=== PATIENT | female | born 1940 | race Caucasian/White ===

== ENCOUNTER 2025-03-29 18:29 | Outpatient (CLI) | payer MEDICARE, SELFPAY | END 2025-03-29 18:30 | disposition home or self-care (01) | LOC: AMB 04-01 11:01 | PROVIDERS: Visit Provider Family Medicine | DX: R41.82 Altered mental status, unspecified (principal); R11.2 Nausea with vomiting, unspecified | CPT/HCPCS: A0425; A0427 ==

== ENCOUNTER 2025-03-29 18:48 | Emergency (ER) | payer MEDICARE, SELFPAY ==
--- OUTSIDE RECORDS SUMMARY | 2017-05-24 19:00 | XMS_ITS | Continuity of Care Document ---
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 Name Role Phone Arron Berrios MD Unavailable Unavailable Medications Medication Instructions Dosage Effective Dates (start - stop) Status Comments gabapentin 300 mg Cap take 2 Capsule (600MG) by ORAL route every day 600 MG - Active lovastatin 20 mg Tab take 1 tablet (20MG ) by oral route every day with the evening meal 20 MG - Active clonazepam 0.5 mg Tab take 0.5 - 1 Tablet (0.25MG) by ORAL route every day 0.25 MG - Active paroxetine 20 mg Tab Take 1 tablet by mo uth daily - Active Procedures Procedure Date Colonoscopy Flex; W/remov Les- 17 Moderate sedation, initial 15 minutes Au Colonoscopy Flex; W/remov Les- 14 Colonoscopy Flex; W/remov Les- 11 Colonoscopy Flex; W/bx 1/mx Level Iv-surg Path Gross/micro 11 Level Iv-surg Path Gross/micro 11 Level Iv-surg Path Gross/micro 11 Level Iv-surg Path Gross/micro 11 Level Iv-surg Path Gross/micro Oct-- 11 0529F Colonoscopy Flex; W/remov Les- 08 Colonoscopy Flex; W/bx /mx Level Iv-surg Path Gross/micro 08 Level Iv-surg Path Gross/micro 08 Advance Directives Directive Yes / No Effective Date File Name No Information Encounters Encounter Description Practice Location Reason(s) For Visit Diagnoses Date Provider Providers Copied on Encounter [facility], [address] [address], [place], [id number], [place] tel:[phone] [facility] No Information 7 Agustina Heller. [address], [id number], [place]. tel:[phone] [facility], [address] [address], [place], [id number], [place] tel:[phone] [facility] No Information 7 Agustina Heller. [address] [place] [address], [id number], [place]. tel:[phone] Referring Provider: Blair Villalobos, [address] [place] [address], [facility]. [phone] [facility], [address] [address], [place], [id number], [place] tel:[phone] [facility] Personal History Colon Polyps 4 Agustina Heller. [address] [place] [address], [id number], [place]. tel:[phone] [facility], [address] [address], [place], [id number], [place] tel:[phone] [facility] No Information 4 Agustina Heller. [address], [id number], [place]. tel:[phone] Referring Provider: Blair Villalobos, [address] [place] [address], [facility]. tel:[phone] [facility], [address] [address], [place], [id number], [place] tel:[phone] [facility] Polyp-intes/r ect/stom-unc BehColon Cancer ScreeningPers onal History Colon PolypsColon Cancer ScreeningBeni gn Neoplasm ColonPersonal History Colon Polyps 9-201 1 No Information Referring Provider: Referral Self, USE FOR SELF REFERRALS. [facility] [address] [address], [place], [id number], [place] tel:[phone] [facility] Polyp-intes/r ect/stom-unc BehBenign Neoplasm Lg BowelFamily Hx GI Tract Cancer 5-200 8 No Information Family History Family Member Type Diagnosis Age At Onset No Information Payers Payer name Insurance type Covered constitution party ID Authoriza tion(s) No Information Social History Type Description Quantity Date Captured Comments Sex Female Smoking Status No Information Chief Complaint And Reason For Visit No Information Reason For Referral Reason For Referral No Information Plan Of Treatment Date Type Action Status Referral Ordered: Colonoscopy Appointment date/timeframe: 05/28/2017 ordered History Of Present Illness Encounter Date Complaint History Of Prese nt Illness No Information Functional Status Date Functional Assessmen t No Information Instructions Date Instruction Additional Infor mation No Information Assessments Type Assessment Date No Information Patient Care Teams Name Effective Dates (start - stop) Status Members No Information
--- OUTSIDE RECORDS SUMMARY | 2025-03-25 13:30 | XMS_ITS | Encounter Summary ---
Author Organization [facility] Address [address] [place] [id number] Care Team Providers Care [facility] Mounter Name Role Phone Idalia Lara PT Unavailable [phone] Taylor Mccoy MD Unavailable Eveline Streeter RN Unavailable [phone] Blair Gutiérrez MD Primary Care Provider Blair Gutiérrez MD Unavailable La Flores MD Unavailable Deepa Dobbins MD Unavailable [phone] No Ref-Primary, Physician Unavailable Reason for Referral * Diagnostic Imaging Mammo (Routine) - Pending Review Specialty Diagnoses / Procedures Referred By Rey t Referred To Contact Radiology. Diagnoses Encounter for screening mammogram for malignant neoplasm of breast Procedures MA Screen Right w/Tito Blair Gutiérrez MD [address] [place] [address] Phone: tel: fax: Referral ID Status Reason Start Date Expiration Date V isits Requested Visits Authorized [id number] Pending Review 03/25/2025 03/25/2026 1 1 * Diagnostic Imaging Dexa (Routine) - Authorized Specialty Diagnoses / Procedures Referred By Conttimothy t Referred To Contact Radiology. Diagnoses Vitamin D deficiency Screening for osteoporosis Asymptomatic menopausal state Procedures DEXA HIP/PELVIS/SPINE - Future Blair Gutiérrez MD [address] [place] [id number] Phone: tel: fax: Referral ID Status Reason Start Date Expiration Date V isits Requested Visits Authorized [id number] Authorized 03/25/2025 03/25/2026 1 1 Reason for Visit * Reason Comments Medicare Visit Encounter Details Date Type Department Care Team (Late st Contact Info) Description 03/25/2025 1:30 PM CDT Office Visit [address] [phone] Blair Gutiérrez MD [address] [place] [phone] Routine general medical examination at a health care facility (Primary Dx); Medicare annual wellness visit, subsequent; Tremor; Malignant neoplasm of left female breast, unspecified estrogen receptor status, unspecified site of breast (H); Ascending aorta dilatation; Atherosclerosis of abdominal aorta; Abdominal aortic aneurysm (AAA) without rupture, unspecified part; Hyperlipidemia LDL goal <70; Major depressive disorder, single episode, mild; Generalized muscle weakness; Other cirrhosis of liver (H); Renal cyst; Splenic lesion; Iron deficiency anemia, unspecified iron deficiency anemia type; Vitamin D deficiency; Encounter for screening mammogram for malignant neoplasm of breast; Screening for osteoporosis; Medication monitoring encounter; Asymptomatic menopausal state Social History Tobacco Use Types Packs/Day Years Used Date Smoking Tobacco: Former Smokeless Tobacco: Never Comments:rare at 18 Alcohol Use Standard Drinks/Week Comments Not Currently 0 (1 standard drink = 0.6 oz pur e alcohol) none Social Connection and Isolation Panel [NHANES] A nswer Date Recorded Frequency of Communication with Friends and Fami ly Not on file 03/25/2025 How often do you get together with friends or re latives? Once a week 03/25/2025 Attends Jainism Services Not on file 03/25 Active Member of Clubs or Organizations Not on f ile 03/25/2025 Attends Club or Organization Meetings Not on tim e 03/25/2025 Marital Status Not on file 03/25/2025 PHQ-2 Answer Date Recorded PHQ-2 Score 0 03/25/2025 [employer] - Occupational Stress Questionnaire Answer Date Recorded Do you feel stress - tense, restless, nervous, or anxious, or unable to sleep at night because your mind is troubled all the time - these days? Not at all 03/25/2025 Exercise Vital Sign Answer Date Recorde d On average, how many days pe r week do you engage in moderate to strenuous exercise (like a brisk walk)? 0 days 03/25/2025 On average, how many minutes do you engage in exercise at this level? 0 min 03/25/2025 Adolescent Education Answer Date Record ed Getting School Help Needed Not on file 07/26 Food Insecurity Answer Date Recorded Within the past 12 months, d id you worry that your food would run out before you got money to buy more? No 03/25/2025 Within the past 12 months, d id the food you bought just not last and you didn t have money to get more? No 03/25/2025 Housing Stability Answer Date Recorded Do you have housing? (Ree g is defined as stable permanent housing and does not include staying outside in a car, in a tent, in an abandoned building, in an overnight mcc, or couch-surfing.) Yes 03/25/2025 Are you worried about losing your housing? No 03/25/2025 Financial Resource Strain Answer Date R ecorded Within the past 12 months, h ave you or your family members you live with been unable to get utilities (heat, electricity) when it was really needed? No 03/25/2025 Transportation Needs Answer Date Record ed Within the past 12 months, h as lack of transportation kept you from medical appointments, getting your medicines, non-medical meetings or appointments, work, or from getting things that you need? No 03/25/2025 Interpersonal Safety Answer Date Record ed Do you feel physically and e motionally safe where you currently live? Yes 03/25/2025 Within the past 12 months, h ave you been hit, slapped, kicked or otherwise physically hurt by someone? No 03/25/2025 Within the past 12 months, h ave you been humiliated or emotionally abused in other ways by your partner or ex-partner? 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 Preventive Care Visit [facility] Blair Gutiérrez MD, Family Medicine Mar 25, 2025 Assessment & Plan Routine general medical examination at a health care facility - Comprehensive metabolic panel - Lipid panel reflex to direct LDL Fasting - CBC with platelets - CK total - UA Macroscopic with reflex to Microscopic and Culture - Albumin Random Urine Quantitative with Creat Ratio - TSH with free T4 reflex - Iron and iron binding capacity - Ferritin - Vitamin D Deficiency - Magnesium - REVIEW OF HEALTH MAINTENANCE PROTOCOL ORDERS - PRIMARY CARE FOLLOW-UP SCHEDULING Medicare annual wellness visit, subsequent - Comprehensive metabolic panel - Lipid panel reflex to direct LDL Fasting - CBC with platelets - CK total - UA Macroscopic with reflex to Microscopic and Culture - Albumin Random Urine Quantitative with Creat Ratio - TSH with free T4 reflex - Iron and iron binding capacity - Ferritin - Vitamin D Deficiency - Magnesium - REVIEW OF HEALTH MAINTENANCE PROTOCOL ORDERS - PRIMARY CARE FOLLOW-UP SCHEDULING Tremor - Comprehensive metabolic panel - Magnesium - REVIEW OF HEALTH MAINTENANCE PROTOCOL ORDERS - PRIMARY CARE FOLLOW-UP SCHEDULING - topiramate (TOPAMAX) 100 MG tablet Dispense: 180 tablet; Refill: 3 - Topiramate Level Malignant neoplasm of left female breast, unspecified estrogen receptor status, unspecified site ofbreast (H) - Comprehensive metabolic panel - CBC with platelets - REVIEW OF HEALTH MAINTENANCE PROTOCOL ORDERS - Miscellaneous DME Supply Order (Use only if a more specific DME order does not already exist) - PRIMARY CARE FOLLOW-UP SCHEDULING Ascending aorta dilatation - Lipid panel reflex to direct LDL Fasting - REVIEW OF HEALTH MAINTENANCE PROTOCOL ORDERS - PRIMARY CARE FOLLOW-UP SCHEDULING - rosuvastatin (CRESTOR) 10 MG tablet Dispense: 90 tablet; Refill: 3 Atherosclerosis of abdominal aorta - Lipid panel reflex to direct LDL Fasting - REVIEW OF HEALTH MAINTENANCE PROTOCOL ORDERS - PRIMARY CARE FOLLOW-UP SCHEDULING - rosuvastatin (CRESTOR) 10 MG tablet Dispense: 90 tablet; Refill: 3 Abdominal aortic aneurysm (AAA) without rupture, unspecified part - Lipid panel reflex to direct LDL Fasting - REVIEW OF HEALTH MAINTENANCE PROTOCOL ORDERS - PRIMARY CARE FOLLOW-UP SCHEDULING - rosuvastatin (CRESTOR) 10 MG tablet Dispense: 90 tablet; Refill: 3 Hyperlipidemia LDL goal <70 - Comprehensive metabolic panel - Lipid panel reflex to direct LDL Fasting - CK total - REVIEW OF HEALTH MAINTENANCE PROTOCOL ORDERS - PRIMARY CARE FOLLOW-UP SCHEDULING - rosuvastatin (CRESTOR) 10 MG tablet Dispense: 90 tablet; Refill: 3 Major depressive disorder, single episode, mild - TSH with free T4 reflex - REVIEW OF HEALTH MAINTENANCE PROTOCOL ORDERS - PRIMARY CARE FOLLOW-UP SCHEDULING - citalopram (CELEXA) 20 MG tablet Dispense: 90 tablet; Refill: 3 Generalized muscle weakness - TSH with free T4 reflex - REVIEW OF HEALTH MAINTENANCE PROTOCOL ORDERS - PRIMARY CARE FOLLOW-UP SCHEDULING Other cirrhosis of liver (H) - Comprehensive metabolic panel - CBC with platelets - REVIEW OF HEALTH MAINTENANCE PROTOCOL ORDERS - PRIMARY CARE FOLLOW-UP SCHEDULING Renal cyst - Comprehensive metabolic panel - UA Macroscopic with reflex to Microscopic and Culture - Albumin Random Urine Quantitative with Creat Ratio - REVIEW OF HEALTH MAINTENANCE PROTOCOL ORDERS - PRIMARY CARE FOLLOW-UP SCHEDULING Splenic lesion - Lipid panel reflex to direct LDL Fasting - REVIEW OF HEALTH MAINTENANCE PROTOCOL ORDERS - PRIMARY CARE FOLLOW-UP SCHEDULING Iron deficiency anemia, unspecified iron deficiency anemia type - CBC with platelets - Iron and iron binding capacity - Ferritin - REVIEW OF HEALTH MAINTENANCE PROTOCOL ORDERS - PRIMARY CARE FOLLOW-UP SCHEDULING Vitamin D deficiency - Comprehensive metabolic panel - Vitamin D Deficiency - REVIEW OF HEALTH MAINTENANCE PROTOCOL ORDERS - DEXA HIP/PELVIS/SPINE - Future - PRIMARY CARE FOLLOW-UP SCHEDULING Encounter for screening mammogram for malignant neoplasm of breast - REVIEW OF HEALTH MAINTENANCE PROTOCOL ORDERS - MA Screen Right w/Tito - PRIMARY CARE FOLLOW-UP SCHEDULING Screening for osteoporosis - REVIEW OF HEALTH MAINTENANCE PROTOCOL ORDERS - DEXA HIP/PELVIS/SPINE - Future - PRIMARY CARE FOLLOW-UP SCHEDULING Medication monitoring encounter - Comprehensive metabolic panel - Lipid panel reflex to direct LDL Fasting - CBC with platelets - CK total - UA Macroscopic with reflex to Microscopic and Culture - Albumin Random Urine Quantitative with Creat Ratio - TSH with free T4 reflex - Iron and iron binding capacity - Ferritin - Vitamin D Deficiency - Magnesium - REVIEW OF HEALTH MAINTENANCE PROTOCOL ORDERS - PRIMARY CARE FOLLOW-UP SCHEDULING Asymptomatic menopausal state - REVIEW OF HEALTH MAINTENANCE PROTOCOL ORDERS - DEXA HIP/PELVIS/SPINE - Future - PRIMARY CARE FOLLOW-UP SCHEDULING Patient has been advised of split billing requirements and indicates understanding: Yes Counseling Appropriate preventive services were addressed with this patient via screening, questionnaire, or discussion as appropriate for fall prevention, nutrition, physical activity, Tobacco-use cessation, social engagement, weight loss and cognition. Checklist reviewing preventive services available has been given to the patient. Reviewed patient's diet, addressing concerns and/or questions. The patient was instructed to see the dentist every 6 months. The patient was provided with written information regarding signs of hearing loss. Information on urinary incontinence and treatment options given to patient. Plan: 1) Medications: reviewed, refilled 2) Labs: pending 3) Immunizations: declines all 4) Imaging/Diagnostics: mammogram, DEXA 5) Consults: NA Return in about 1 year (around 03/25/2026) for Complete Physical, Medication Recheck Visit, Follow [facility]. 44 minutes spent by myself on the date of the encounter doing chart review, history and exam, documentation and further activities per the note. The longitudinal plan of care for the diagnosis(es)/condition(s) as documented were addressed during this visit. Due to the added complexity in care, I will continue to support Pat in the subsequent management and with ongoing continuity of care. Shared Decision making completed. Quoc Frankel is a 84 year old, presenting for the following: Medicare Visit 03/25/2025 1:38 PM Additional Questions Roomed by Noemy Everett CMA HPI Patient is fasting. Left breast cancer, S/P Mastectomy - 1986 Tremor - chronic - stable - started at age 65 Ascending aorta dilatation / AAA - imaging in 11/2023 and 12/2023 - stable - Dr Flores Cirrhosis / Renal cyst / Splenic lesion KAYLIE Hemoglobin Date Value Ref Range Status 12/16/2023 12.0 11.7 - 15.7 g/dL Final 10/25/2023 9.4 (L) 11.7 - 15.7 g/dL Final 11/09/2019 13.1 11.7 - 15.7 g/dL Final 07/31/2018 13.0 11.7 - 15.7 g/dL Final Vitamin D deficiency Lipids Recent Labs Lab Test 12/16/23 0830 11/10/21 1049 CHOL 180 190 HDL 76 61 LDL 83 96 TRIG 104 165* Depression / Anxiety - PHQ = 0, PIYUSH = 0 How are you doing with your anxiety since your last visit? No change Are you having other symptoms that might be associated with anxiety? No Have you had a significant life event? OTHER: daughter trenton cowan, in hospital, kids are in hospital Are you feeling depressed? No Do you have any concerns with your use of alcohol or other drugs? No 08/25/2023 3:06 PM 11/18/2023 9:33 AM 03/25/2025 1:17 PM PIYUSH-7 SCORE Total Score 0 (minimal anxiety) Incomplete Total Score 0 0 08/25/2023 3:06 PM 11/18/2023 9:32 AM 03/25/2025 1:17 PM PHQ PHQ-9 Total Score 0 0 0 Q9: Thoughts of better off /self-harm past 2 weeks Not at all Not at all Not at all Patient-reported 03/25/2025 1:17 PM Last PHQ-9 1. Little interest or pleasure in doing things 0 2. Feeling down, depressed, or hopeless 0 3. Trouble falling or staying asleep, or sleeping too much 0 4. Feeling tired or having little energy 0 5. Poor appetite or overeating 0 6. Feeling bad about yourself 0 7. Trouble concentrating 0 8. Moving slowly or restless 0 Q9: Thoughts of better off /self-harm past 2 weeks 0 PHQ-9 Total Score 0 Patient-reported 11/18/2023 9:33 AM PIYUSH-7 1. Feeling nervous, anxious, or on edge 0 2. Not being able to stop or control worrying 0 3. Worrying too much about different things 0 4. Trouble relaxing 0 5. Being so restless that it is hard to sit still 0 6. Becoming easily annoyed or irritable 0 7. Feeling afraid, as if something awful might happen 0 PIYUSH-7 Total Score 0 If you checked any problems, how difficult have they made it for you to do your work, take care of things at home, or get along with other people? Not difficult at all How are you doing with your depression since your last visit? No change Are you having other symptoms that might be associated with depression? No Have you had a significant life event? OTHER: children is hospital Are you feeling anxious or having panic attacks? No Do you have any concerns with your use of alcohol or other drugs? No Suicide Assessment Five-step Evaluation and Treatment (SAFE-T) Advance Care Planning Discussed advance care planning with patient; informed AVS has link to [facility]. 03/25/2025 General Health How would you rate your overall physical health? Excellent Feel stress (tense, anxious, or unable to sleep) Not at all 03/25/2025 Nutrition Diet: Regular (no restrictions) 03/25/2025 Exercise Days per week of moderate/strenous exercise 0 days Average minutes spent exercising at this level 0 min (!) EXERCISE CONCERN 03/25/2025 Social Factors Frequency of gathering with friends or relatives Once a week Worry food won't last until get money to buy more No Food not last or not have enough money for food? No Do you have housing? (Housing is defined as stable permanent housing and does not include staying outside in a car, in a tent, in an abandoned building, in an overnight mcc, or couch-surfing.) Yes Are you worried about losing your housing? No Lack of transportation? No Unable to get utilities (heat,electricity)? No 03/25/2025 Fall Risk Fallen 2 or more times in the past year? No Trouble with walking or balance? No 03/25/2025 Activities of Daily Living- Home Safety Needs help with the following daily activites None of the above Safety concerns in the home None of the above 03/25/2025 Dental Dentist two times every year? (!) NO 03/25/2025 Hearing Screening Hearing concerns? (!) I FEEL THAT PEOPLE ARE MUMBLING OR NOT SPEAKING CLEARLY. 03/25/2025 Driving Risk Screening Patient/family members have concerns about driving No 03/25/2025 General Alertness/Fatigue Screening Have you been more tired than usual lately? No 03/25/2025 Urinary Incontinence Screening Bothered by leaking urine in past 6 months Yes Today's PHQ-9 Score: 03/25/2025 1:17 PM PHQ-9 SCORE PHQ-9 Total Score MyChart 0 PHQ-9 Total Score 0 Patient-reported 03/25/2025 Substance Use Alcohol more than 3/day or more than 7/wk No Do you have a current opioid prescription? No How severe/bad is pain from 1 to 10? 0/10 (No Pain) Do you use any other substances recreationally? No Social History Tobacco Use Smoking status: Former Smokeless tobacco: Never Tobacco comments: rare at 18 Vaping Use Vaping status: Never Used Substance Use Topics Alcohol use: Not Currently Comment: none Drug use: No Annual mammogram Fracture Risk Assessment Tool Link to Frax Calculator Use the information below to complete the Frax calculator : 1940 Sex: female Weight (kg): Patient weight not available. Height (cm): 0 cm Previous Fragility Fracture: Yes History of parent with fractured hip: No Current Smoking: No Patient has been on glucocorticoids for more than 3 months (5mg/day or more): No Rheumatoid Arthritis on Problem List: No Secondary Osteoporosis on Problem List: No Consumes 3 or more units of alcohol per day: No Femoral Neck BMD (g/cm2) Reviewed and updated as needed this visit by Provider Current providers sharing in care for this patient include: Patient Care Team: Blair Gutiérrez MD as PCP - General (Family Medicine) Idalia Lara PT as Specialty Partition Assembler (Physical Medicine and Rehabilitation) Taylor Mccoy MD as MD (Physical Medicine and Rehabilitation) Eveline Streeter, KRIS as Specialty Partition Assembler (Physical Medicine and Rehabilitation) Blair Gutiérrez MD as Assigned PCP La Flores MD as Assigned Heart and Vascular Provider Deepa Dobbins MD as MD (Cardiovascular Disease) No Ref-Primary, Physician The following health maintenance items are reviewed in Epic and correct as of today: Health Maintenance Topic Date Due DEXA Never done HEPATITIS A VACCINE (1 of 2 - Risk 2-dose series) Never done ZOSTER VACCINE (1 of 2) Never done HEPATITIS B VACCINE (1 of 3 - Risk 3-dose series) Never done DTAP/TDAP/TD VACCINE (1 - Tdap) 04/14/2007 PNEUMOCOCCAL VACCINE 50+ YEARS (2 of 2 - PCV) 04/13/2008 RSV VACCINE (1 - 1-dose 75+ series) Never done MAMMO SCREENING 11/21/2020 COVID-19 VACCINE ( - 2023- season) Never done LIPID 12/16/2024 INFLUENZA VACCINE (Season Ended) 2025 PHQ-9 09/24/2025 MEDICARE ANNUAL WELLNESS VISIT 03/25/2026 ANNUAL REVIEW OF HM ORDERS 03/25/2026 FALL RISK ASSESSMENT 03/25/2026 ADVANCE CARE PLANNING 03/25/2030 DEPRESSION ACTION PLAN Completed HPV VACCINE Aged Out MENINGITIS VACCINE Aged Out COLORECTAL CANCER SCREENING Discontinued Patient Active Problem List Diagnosis Tremor Hyperlipidemia LDL goal <70 Major depressive disorder, single episode, mild Breast cancer (H) Colon polyps Vitamin D deficiency Ureteral stone Pericardial cyst Renal cyst Generalized muscle weakness Splenic lesion Urinary tract infection with hematuria, site unspecified COVID-19 Ascending aorta dilatation Cirrhosis of liver (H) Left wrist pain Closed left hip fracture (H) Fall at home, initial encounter Past Medical History: Diagnosis Date Ascending aorta dilatation 3.9 x 4.1cm - Dr Flores Breast cancer (H) 1986 Left Cirrhosis of liver (H) see CT - nodularity Colon polyps 05/06, 06/09 tubular adenomas x 3 (2013), x 3 (2016) Hyperlipidemia LDL goal <70 Infection due to 2018 novel coronavirus 07/2023 [facility] hospitalization Major depressive disorder, single episode, mild 2006 Nephrolithiasis 12/2022 Dr Dubon Renal disease left renal cyst Tremor 2003 dr paige - essential Vitamin D deficiency Past Surgical History: Procedure Laterality Date ARTHROPLASTY HIP ANTERIOR Left 09/27/2023 Procedure: ARTHROPLASTY, HIP, TOTAL, LEFT; Surgeon: Ronni Villegas MD; Location: OR CLOSED REDUCTION WRIST Left 09/27/2023 Procedure: CLOSED REDUCTION AND CASTING, LEFT WRIST; Surgeon: Ronni Villegas MD; Location: OR COLONOSCOPY 05/06/2008 Dr. Agustina SCHMITT - tubular adenomas x 3 (2013), 3 (2016) - due 3 yrs CYSTOSCOPY, RETROGRADES, INSERT STENT URETER(S), COMBINED Left 01/05/2023 Procedure: 1. Cystourethroscopy with left retrograde pyelography 2. Placement of left ureteral stent. 3. Intraoperative interpretation of fluoroscopic imaging.; Surgeon: Pawel Dubon MD; Location: [facility] OR HYSTERECTOMY VAGINAL 1978 ovaries in LASER HOLMIUM LITHOTRIPSY URETER(S), INSERT STENT, COMBINED Left 01/27/2023 Procedure: 1. Cystourethroscopy 2. Left ureteroscopy 3. Left retrograde pyelogram with interpretation of intraoperative fluoroscopic imaging 4. Thulium fiber laser lithotripsy with basket stone extraction 5. Left ureteral stent exchange; Surgeon: Pawel Dubon MD; Location: [facility] OR SURGICAL HISTORY OF - Left 1986 left radical mastectomy on left SURGICAL HISTORY OF - Bilateral 1946 tonsillectomy and adenoidectomy Current Outpatient Medications Medication Sig Dispense Refill citalopram (CELEXA) 20 MG tablet Take 1 tablet (20 mg) by mouth daily. 90 tablet 3 rosuvastatin (CRESTOR) 10 MG tablet Take 1 tablet (10 mg) by mouth daily. 90 tablet 3 topiramate (TOPAMAX) 100 MG tablet Take 1 tablet (100 mg) by mouth 2 times daily. 180 tablet 3 No Known Allergies Family History Problem Relation Age of Onset Heart Failure Mother Colon Cancer Mother age 85 Coronary Artery Disease Father age 83 Diabetes Sister Kidney failure Sister Colon Cancer Sister mets to liver Diabetes Sister Colon Cancer Brother 42 Diabetes Brother Cancer Brother multiple - at age 68 Colon Cancer Brother Other - See Comments Daughter Long Covid with clots Diabetes Son Coronary Artery Disease Son 54 s/p stent placement in Oct 2021, needs further stents soon Other - See Comments Son CAH Parkinsonism Maternal Uncle Colon Cancer Other neice at age 44 Social History Socioeconomic History Marital status: Spouse name: Vladimir Number of children: 3 Years of education: 14 Highest education level: None Occupational History Employer: NONE Tobacco Use Smoking status: Former Smokeless tobacco: Never Tobacco comments: rare at 18 Vaping Use Vaping status: Never Used Substance and Sexual Activity Alcohol use: Not Currently Comment: none Drug use: No Sexual activity: Never Other Topics Concern Parent/sibling w/ CABG, MO or angioplasty before 65F 55M? No Caffeine Concern Yes Comment: 3-4 decaf daily - no pop Exercise Yes Comment: 2-3 times per week Seat Belt Yes Social Drivers of Health Financial Resource Strain: Low Risk (03/25/2025) Financial Resource Strain Within the past 12 months, have you or your family members you live with been unable to get utilities (heat, electricity) when it was really needed?: No Food Insecurity: Low Risk (03/25/2025) Food Insecurity Within the past 12 months, did you worry that your food would run out before you got money to buy more?: No Within the past 12 months, did the food you bought just not last and you didn???t have money to getmore?: No Transportation Needs: Low Risk (03/25/2025) Transportation Needs Within the past 12 months, has lack of transportation kept you from medical appointments, getting your medicines, non-medical meetings or appointments, work, or from getting things that you need?: No Physical Activity: Inactive (03/25/2025) Exercise Vital Sign Days of Exercise per Week: 0 days Minutes of Exercise per Session: 0 min Stress: No Stress Concern Present (03/25/2025) [employer] - Occupational Stress Questionnaire Feeling of Stress : Not at all Social Connections: Unknown (03/25/2025) Social Connection and Isolation Panel [NHANES] Frequency of Social Gatherings with Friends and Family: Once a week Interpersonal Safety: Low Risk (03/25/2025) Interpersonal Safety Do you feel physically and emotionally safe where you currently live?: Yes Within the past 12 months, have you been hit, slapped, kicked or otherwise physically hurt by someone?: No Within the past 12 months, have you been humiliated or emotionally abused in other ways by your partner or ex-partner?: No Housing Stability: Low Risk (03/25/2025) Housing Stability Do you have housing? : Yes Are you worried about losing your housing?: No Colonoscopy: NA FIT / Cologuard: NA Pap: NA Mammogram: ordered DEXA: ordered Review of Systems CONSTITUTIONAL: NEGATIVE for fever, chills, change in weight INTEGUMENTARY/SKIN: NEGATIVE for worrisome rashes, moles or lesions EYES: NEGATIVE for vision changes or irritation ENT/MOUTH: NEGATIVE for ear, mouth and throat problems RESP: NEGATIVE for significant cough or SOB BREAST: NEGATIVE for masses, tenderness or discharge CV: NEGATIVE for chest pain, palpitations or peripheral edema GI: NEGATIVE for nausea, abdominal pain, heartburn, or change in bowel habits : NEGATIVE for frequency, dysuria, or hematuria MUSCULOSKELETAL: NEGATIVE for significant arthralgias or myalgia NEURO: NEGATIVE for weakness, dizziness or paresthesias ENDOCRINE: NEGATIVE for temperature intolerance, skin/hair changes HEME: NEGATIVE for bleeding problems PSYCHIATRIC: NEGATIVE for changes in mood or affect Objective Exam There were no vitals taken for this visit. Estimated body mass index is 26.52 kg/m?? as calculated from the following: Height as of 11/03/23: 1.575 m (5' 2). Weight as of 11/18/23: 65.8 kg (145 lb). Physical Exam GENERAL: alert and no distress EYES: Eyes grossly normal to inspection, PERRL and conjunctivae and sclerae normal HENT: ear canals and TM's normal, nose and mouth without ulcers or lesions NECK: no adenopathy, no asymmetry, masses, or scars RESP: lungs clear to auscultation - no rales, rhonchi or wheezes BREAST: pt declines CV: regular rate and rhythm, normal S1 S2, no S3 or S4, no murmur, click or rub, no peripheral edema ABDOMEN: soft, nontender, no hepatosplenomegaly, no masses and bowel sounds normal (female): pt declines RECTAL: pt declines MS: no gross musculoskeletal defects noted, no edema SKIN: no suspicious lesions or rashes NEURO: Normal strength and tone, mentation intact and speech normal PSYCH: mentation appears normal, affect normal/bright 03/25/2025 Mini Cog 3 Item Recall 3 objects recalled Signed Electronically by: Blair Gutiérrez MD, FAAFP, [facility] Director [employer] [address] [place] [email or web address], [email or web address] Office: Answers submitted by the patient for this visit: Patient Health Questionnaire (Submitted on 03/25/2025) If you checked off any problems, how difficult have these problems made it for you to do your work,take care of things at home, or get along with other people?: Not difficult at all PHQ9 TOTAL SCORE: 0 Patient Health Questionnaire (G7) (Submitted on 03/25/2025) PIYUSH 7 TOTAL SCORE: Incomplete documented in this encounter Plan of Treatment Scheduled Orders Name Type Priority Associated Diagnoses Orde r Schedule DEXA HIP/PELVIS/SPINE - Future Imaging Routine Vitamin D deficiency Screening for osteoporosis Asymptomatic menopausal state Expected: 03/25/2025 (Approximate), Expires: 03/25/2026 MA Screen Right w/[facility] Imaging Routine Encounter for screening mammogram for malignant neoplasm of breast Expected: 03/25/2025 (Approximate), Expires: 03/25/2026 documented as of this encounter Procedures Procedure Name Priority Date/Time Associated Diagnosis Comments UA MICROSCOPIC WITH REFLEX TO CULTURE Routine 03/25/2025 2:54 PM CDT Routine general medical examination at a [facility] Medicare annual wellness visit, subsequent Renal cyst Medication monitoring encounter UA MACROSCOPIC WITH REFLEX TO MICRO AND CULTURE Routine 03/25/2025 2:54 PM CDT Routine general medical examination at a [facility] Medicare annual wellness visit, subsequent Renal cyst Medication monitoring encounter ALBUMIN RANDOM URINE QUANTITATIVE Routine 03/25/2025 2:54 PM CDT Routine general medical examination at a [facility] Medicare annual wellness visit, subsequent Renal cyst Medication monitoring encounter TOPIRAMATE LEVEL Routine 03/25/2025 2:44 PM CDT Tremor VITAMIN D DEFICIENCY SCREENING Routine 03/25/2025 2:44 PM CDT Routine general medical examination at a [facility] Medicare annual wellness visit, subsequent Vitamin D deficiency Medication monitoring encounter TSH WITH FREE T4 REFLEX Routine 03/25/2025 2:44 PM CDT Routine general medical examination at a [facility] Medicare annual wellness visit, subsequent Major depressive disorder, single episode, mild Generalized muscle weakness Medication monitoring encounter MAGNESIUM Routine 03/25/2025 2:44 PM CDT Routine general medical examination at a [facility] Medicare annual wellness visit, subsequent Tremor Medication monitoring encounter LIPID REFLEX TO DIRECT LDL PANEL Routine 03/25/2025 2:44 PM CDT Routine general medical examination at a [facility] Medicare annual wellness visit, subsequent Ascending aorta dilatation Atherosclerosis of abdominal aorta Abdominal aortic aneurysm (AAA) without rupture, unspecified part Hyperlipidemia LDL goal <70 Splenic lesion Medication monitoring encounter IRON AND IRON BINDING CAPACITY Routine 03/25/2025 2:44 PM CDT Routine general medical examination at a [facility] Medicare annual wellness visit, subsequent Iron deficiency anemia, unspecified iron deficiency anemia type Medication monitoring encounter FERRITIN Routine 03/25/2025 2:44 PM CDT Routine general medical examination at a [facility] Medicare annual wellness visit, subsequent Iron deficiency anemia, unspecified iron deficiency anemia type Medication monitoring encounter COMPREHENSIVE METABOLIC PANEL Routine 03/25/2025 2:44 PM CDT Routine general medical examination at a [facility] Medicare annual wellness visit, subsequent Tremor Malignant neoplasm of left female breast, unspecified estrogen receptor status, unspecified site of breast (H) Hyperlipidemia LDL goal <70 Other cirrhosis of liver (H) Renal cyst Vitamin D deficiency Medication monitoring encounter CK TOTAL Routine 03/25/2025 2:44 PM CDT Routine general medical examination at a [facility] Medicare annual wellness visit, subsequent Hyperlipidemia LDL goal <70 Medication monitoring encounter CBC WITH PLATELETS Routine 03/25/2025 2: 44 PM CDT Routine general medical examination at a [facility] Medicare annual wellness visit, subsequent Malignant neoplasm of left female breast, unspecified estrogen receptor status, unspecified site of breast (H) Other cirrhosis of liver (H) Iron deficiency anemia, unspecified iron deficiency anemia type Medication monitoring encounter documented in this encounter Results * (ABNORMAL) UA Microscopic with Reflex to Culture (03/25/2025 2:54 PM CDT) Bacteria Urine Moderate( A) None Seen /HPF [facility] 03/25/2025 3:12 PM CDT [facility] RBC Urine 10-25(A) 0-2 /HPF /HPF [facility] 03/25/2025 3:12 PM CDT [facility] WBC Urine 0-5 0-5 /HPF /HPF [facility] 03/25/2025 3:12 PM CDT [facility] Squamous Epithelials Urine Few(A) None Seen /LPF [facility] 03/25/2025 3:12 PM CDT [facility] Urine MID-STREAM URINE SPECIMEN / Unknown Non-blood Collection / Unknown 03/25/2025 2:54 PM CDT 03/25/2025 2:54 PM CDT Narrative [facility] - 03/25/2025 3:12 PM CDT Urine Culture not indicated Blair Gutiérrez MD LAB - URINE ORDERABLES Final Res ult [facility] [place] [facility] [address] [facility] Lab (no room number, 1st floor of clinic) [place] [address], [facility] * (ABNORMAL) Albumin Random Urine Quantitative with Creat Ratio (03/25/2025 2:54 PM CDT) Creatinine Urine mg/dL 58.3 mg/dL 03/26/2025 3:41 AM CDT [facility] Comment:The reference ranges have not been established in urine creatinine. The results should be integrated into the clinical context for interpretation. Albumin Urine mg/L 330.0 mg/L 2024 3:41 AM CDT [facility] Comment:The reference ranges have not been established in urine albumin. The results should be integrated into the clinical context for interpretation. Albumin Urine mg/g Cr 566.04(H) 0.00 - 25.00 mg/g Cr 03/26/2025 3:41 AM CDT [facility] Comment: Microalbuminuria is defined as an albumin:creatinine ratio of 17 to 299 for males and 25 to 299 for females. A ratio of albumin:creatinine of 300 or higher is indicative of overt proteinuria. Due to biologic variability, positive results should be confirmed by a second, first-morning random or 24-hour timed urine specimen. If there is discrepancy, a third specimen is recommended. When 2 out of 3 results are in the microalbuminuria range, this is evidence for incipient nephropathy and warrants increased efforts at glucose control, blood pressure control, and institution of therapy with an jorboiosgyu-frtpamtgxh-ohhsue (JARRELL) inhibitor (if the patient can tolerate it). Urine MID-STREAM URINE SPECIMEN / Unknown Non-blood Collection / Unknown 03/25/2025 2:54 PM CDT 03/25/2025 2:54 PM CDT Blair Gutiérrez MD LAB - URINE ORDERABLES Final Res ult [facility] [address] [facility], [address] [place] [phone] * (ABNORMAL) UA Macroscopic with reflex to Microscopic and Culture (03/25/2025 2:54 PM CDT) Color Urine Yellow Colorless, Straw, Light Yellow, Yellow 03/25/2025 3:08 PM CDT [facility] Appearance Urine Clear Clear 03/25/20 25 3:08 PM CDT [facility] Glucose Urine Negative Negative mg/dL 03/25/2025 3:08 PM CDT [facility] Bilirubin Urine Negative Negative 3:08 PM CDT [facility] Ketones Urine Negative Negative mg/dL 03/25/2025 3:08 PM CDT [facility] Specific [place] Urine 1.025 1.003 - 1.035 03/25/2025 3:08 PM CDT [facility] Blood Urine Large(A) Negative 03/25/2025 3:08 PM CDT [facility] pH Urine 7.0 5.0 - 7.0 03/25/2025 3:08 PM CDT [facility] Protein Albumin Urine 100(A) Negative mg/dL 03/25/2025 3:08 PM CDT [facility] Urobilinogen Urine 0.2 0.2, 1.0 E.U./dL 03/25/2025 3:08 PM CDT [facility] Nitrite Urine Negative Negative 03/25/2025 3:08 PM CDT [facility] Leukocyte Esterase Urine Small(A) Negative 03/25/2025 3:08 PM CDT [facility] Urine MID-STREAM URINE SPECIMEN / Unknown Non-blood Collection / Unknown 03/25/2025 2:54 PM CDT 03/25/2025 2:54 PM CDT us Blair Gutiérrez MD LAB - URINE ORDERABLES Final Res ult [facility] [place] [facility] [address] [place] [address] [address] Lab (no room number, 1st floor of clinic) [place] [address], [facility] * Topiramate Level (03/25/2025 2:44 PM CDT) [facility] [address] Topiramate 8.8 5.0 - 20.0 ug/mL 03/26/2025 9:27 AM CDT [facility] Comment: INTERPRETIVE INFORMATION: Topiramate Therapeutic range: 5.0-20.0 ug/mL Toxic: Not well established Pharmacokinetics varies widely, particularly with co-medications, age, and/or compromised renal function. Adverse effects may include somnolence, fatigue, and dizziness. Performed By: [employer] [address] [place] [id number] Remote Advisor: Nikko Love MD, PhD CLIA Number: [id number] Blood BLOOD SPECIMEN / Unknown Venipuncture / Unknown 03/25/2025 2:44 PM CDT 03/25/2025 2:44 PM CDT us Blair Gutiérrez MD LAB - BLOOD ORDERABLES Final Res ult Performing Organization Address [facility]/ZIP Co de Phone Number [facility] [employer] [address] [place] [phone] [phone] * Magnesium (03/25/2025 2:44 PM CDT) Magnesium 2.1 1.7 - 2.3 mg/dL 03/26/2025 3:16 AM CDT [facility] Blood BLOOD SPECIMEN / Unknown Venipuncture / Unknown 03/25/2025 2:44 PM CDT 03/25/2025 2:44 PM CDT us Blair Gutiérrez MD LAB - BLOOD ORDERABLES Final Res ult [facility] [address] [facility], [address] [place] [address], [facility] * (ABNORMAL) Vitamin D Deficiency (03/25/2025 2:44 PM CDT) Vitamin D, Total (25-Hydroxy) 54(H) 20 - 50 ng/mL 03/26/2025 3:12 AM CDT [facility] Comment:indicates supplement ation, with increased risk of hypercalciuria Blood BLOOD SPECIMEN / Unknown Venipuncture / Unknown 03/25/2025 2:44 PM CDT 03/25/2025 2:44 PM CDT Narrative [facility] - 03/26/2025 3:12 AM CDT Season, race, dietary intake, and treatment affect the concentration of 49-hcghxki-Uvbsdfv D. Values may decrease during winter months and increase during summer months. Vitamin D determination is routinely performed by an immunoassay specific for 25 hydroxyvitamin D3. If an individual is on vitamin D2(ergocalciferol) supplementation, please specify 25 OH vitamin D2 and D3 level determination by LCMSMS test VITD23. us Blair Gutiérrez MD LAB - BLOOD ORDERABLES Final Res ult [facility] [address] [facility], [address] * Ferritin (03/25/2025 2:44 PM CDT) Ferritin 231 11 - 328 ng/mL 03/26/2025 3:16 AM CDT [facility] Blood BLOOD SPECIMEN / Unknown Venipuncture / Unknown 03/25/2025 2:44 PM CDT 03/25/2025 2:44 PM CDT us Blair Gutiérrez MD LAB - BLOOD ORDERABLES Final Res ult [facility] [address] [facility], [address] * Iron and iron binding capacity (03/25/2025 2:44 PM CDT) Iron 82 37 - 145 ug/dL 03/26/2025 3:16 AM CDT [facility] Iron Binding Capacity 264 240 - 430 ug/dL 03/26/2025 3:16 AM CDT [facility] Iron Sat Index 31 15 - 46 % 03/26/2025 3:16 AM CDT [facility] Blood BLOOD SPECIMEN / Unknown Venipuncture / Unknown 03/25/2025 2:44 PM CDT 03/25/2025 2:44 PM CDT us Blair Gutiérrez MD LAB - BLOOD ORDERABLES Final Res ult [facility] [address] [facility], [address] [id number] * TSH with free T4 reflex (03/25/2025 2:44 PM CDT) Pathologist [facility] TSH 1.65 0.30 - 4.20 uIU/mL 03/26/2025 3:12 AM CDT [facility] Blood BLOOD SPECIMEN / Unknown Venipuncture / Unknown 03/25/2025 2:44 PM CDT 03/25/2025 2:44 PM CDT us Blair Gutiérrez MD LAB - BLOOD ORDERABLES Final Res ult [facility] [address] [facility], [address] [phone] [place] [address] * CK total (03/25/2025 2:44 PM CDT) Pathologist [facility] CK 41 26 - 192 U/L 03/26/2025 3:16 AM CDT [facility] Blood BLOOD SPECIMEN / Unknown Venipuncture / Unknown 03/25/2025 2:44 PM CDT 03/25/2025 2:44 PM CDT us Blair Gutiérrez MD LAB - BLOOD ORDERABLES Final Res ult U [facility] [address] [facility], [address] * (ABNORMAL) CBC with platelets (03/25/2025 2:44 PM CDT) Pathologist [facility] WBC Count 3.7(L) 4.0 - 11.0 10e3/uL 03/25/2025 2:54 PM CDT [facility] RBC Count 3.87 3.80 - 5.20 10e6/uL 03/25/2025 2:54 PM CDT [facility] Hemoglobin 12.3 11.7 - 15.7 g/dL 03/25/2025 2:54 PM CDT [facility] Hematocrit 37.4 35.0 - 47.0 % 03/25/2025 2:54 PM CDT [facility] MCV 97 78 - 100 fL 03/25/2025 2:54 PM CDT [facility] MCH 31.8 26.5 - 33.0 pg 03/25/2025 2:54 PM CDT [facility] MCHC 32.9 31.5 - 36.5 g/dL 03/25/2025 2:54 PM CDT [facility] RDW 12.4 10.0 - 15.0 % 03/25/2025 2:54 PM CDT [facility] Platelet Count 197 150 - 450 10e3/uL 03/25/2025 2:54 PM CDT [facility] Blood BLOOD SPECIMEN / Unknown Venipuncture / Unknown 03/25/2025 2:44 PM CDT 03/25/2025 2:44 PM CDT us Blair Gutiérrez MD LAB - BLOOD ORDERABLES Final Res ult RV LAB[facility]AT[facility] [place] [facility] [address] [place] [address] Lab (no room number, 1st floor of clinic) [place] [address], [facility] * Lipid panel reflex to direct LDL Fasting (03/25/2025 2:44 PM CDT) [facility] [address] Cholesterol 175 <200 mg/dL 03/26/2025 3:16 AM CDT [facility] Triglycerides 86 <150 mg/dL 03/26/2025 3:16 AM CDT [facility] Direct Measure HDL 77 >=50 mg/dL 2024 3:16 AM CDT [facility] LDL Cholesterol Calculated 81 <100 mg/dL 03/26/2025 3:16 AM CDT [facility] Non HDL Cholesterol 98 <130 mg/dL 03/26/2025 3:16 AM CDT [facility] Patient Fasting > 8hrs? Yes 03/26/2025 3:16 AM CDT [facility] Blood BLOOD SPECIMEN / Unknown Venipuncture / Unknown 03/25/2025 2:44 PM CDT 03/25/2025 2:44 PM CDT Narrative [facility] - 03/26/2025 3:16 AM CDT Cholesterol Desirable: < 200 mg/dL Borderline High: 200 - 239 mg/dL High: >= 240 mg/dL Triglycerides Normal: < 150 mg/dL Borderline High: 150 - 199 mg/dL High: 200-499 mg/dL Very High: >= 500 mg/dL Direct Measure HDL Female: >= 50 mg/dL Male: >= 40 mg/dL LDL Cholesterol Desirable: < 100 mg/dL Above Desirable: 100 - 129 mg/dL Borderline High: 130 - 159 mg/dL High: 160 - 189 mg/dL Very High: >= 190 mg/dL Non HDL Cholesterol Desirable: < 130 mg/dL Above Desirable: 130 - 159 mg/dL Borderline High: 160 - 189 mg/dL High: 190 - 219 mg/dL Very High: >= 220 mg/dL us Blair Gutiérrez MD LAB - BLOOD ORDERABLES Final Res ult [facility] [address] [facility], [address] [place] [phone] * (ABNORMAL) Comprehensive metabolic panel (03/25/2025 2:44 PM CDT) Sodium 144 135 - 145 mmol/L 03/26/2025 3:40 AM CDT [facility] Potassium 4.0 3.4 - 5.3 mmol/L 03/26/2025 3:40 AM CDT [facility] Carbon Dioxide (CO2) 24 22 - 29 mmol/L 03/26/2025 3:40 AM CDT [facility] Anion Gap 10 7 - 15 mmol/L 03/26/2025 3:40 AM CDT [facility] Urea Nitrogen 23.2(H) 8.0 - 23.0 mg/dL 03/26/2025 3:40 AM CDT [facility] Creatinine 0.86 0.51 - 0.95 mg/dL 03/26/2025 3:40 AM CDT [facility] GFR Estimate 66 >60 mL/min/1.7 3m2 03/26/2025 3:40 AM CDT [facility] Comment:eGFR calculated us2020 CKD-EPI equation. Calcium 9.8 8.8 - 10.4 mg/dL 03/26/2025 3:40 AM CDT [facility] Chloride 110(H) 98 - 107 mmol/L 03/26/2025 3:40 AM CDT [facility] Glucose 84 70 - 99 mg/dL 03/26/2025 3:40 AM CDT [facility] Alkaline Phosphatase 54 40 - 150 U/L 03/26/2025 3:40 AM CDT [facility] AST 20 0 - 45 U/L 03/26/2025 3:40 AM CDT [facility] ALT 11 0 - 50 U/L 03/26/2025 3:40 AM CDT [facility] Protein Total 6.9 6.4 - 8.3 g/dL 03/26/2025 3:40 AM CDT [facility] Albumin 4.3 3.5 - 5.2 g/dL 03/26/2025 3:40 AM CDT [facility] Bilirubin Total 0.3 <=1.2 mg/dL 03/26/2025 3:40 AM CDT [facility] Patient Fasting > 8hrs? Yes 03/26/2025 3:40 AM CDT [facility] Blood BLOOD SPECIMEN / Unknown Venipuncture / Unknown 03/25/2025 2:44 PM CDT 03/25/2025 2:44 PM CDT us Blair Gutiérrez MD LAB - BLOOD ORDERABLES Final Res ult [facility] [address] [facility], [address] [place] [address], [facility] documented in this encounter Visit Diagnoses Diagnosis Routine general medical examination at a health care facility- Primary Medicare annual wellness visit, subsequent Routine general medical examination at a health care facility Tremor Abnormal involuntary movements Malignant neoplasm of left female breast, unspecified estrogen receptor status, unspecified site of breast (H) Ascending aorta dilatation Thoracic aortic ectasia Atherosclerosis of abdominal aorta Atherosclerosis of aorta Abdominal aortic aneurysm (AAA) without rupture, unspecified part Hyperlipidemia LDL goal <70 Other and unspecified hyperlipidemia Major depressive disorder, single episode, mild Generalized muscle weakness Muscle weakness (generalized) Other cirrhosis of liver (H) Renal cyst Unspecified congenital cystic kidney disease Splenic lesion Disease of spleen, unspecified Iron deficiency anemia, unspecified iron deficiency anemia type Vitamin D deficiency Unspecified vitamin D deficiency Encounter for screening mammogram for malignant neoplasm of breast Other screening mammogram Screening for osteoporosis Special screening for osteoporosis Medication monitoring encounter Encounter for therapeutic drug monitoring Asymptomatic menopausal state Asymptomatic postmenopausal status (age-related) (natural) documented in this encounter Additional Health Concerns Assessment Noted Time PHQ-9 Depression Total Score: 0 03/25/20 25 1:17 PM CDT documented as of this encounter Care Teams [employer] Relationship Specialty Start Date End Date Blair Gutiérrez MD [address] [place] [address] [phone] PCP - General Family Medicine 09/08/23 Idalia Lara, PT [address] [place] [address] [address] [place], [place] [phone] Specialty Partition Assembler Physical Medicine and Rehabilitation 09/04/19 Taylor Mccoy MD [address] [place], [place] [phone] Physical Medicine and Rehabilitation 09/04/19 Eveline Streeter, KRIS RETIRED [place], [place] [phone] Specialty Partition Assembler Physical Medicine and Rehabilitation 09/04/19 Blair Gutiérrez MD [address] [place] [address] [phone] Assigned PCP 09/10/23 La Flores MD [address] [place] [id number] Assigned Heart and Vascular Provider 09/17/23 Deepa Dobbins MD [address] [place] [id number] Cardiovascular Disease 10/12/23 No Ref-Primary, Physician 11/10/23 documented as of this encounter
[2025-03-29 18:53] VITALS: BP 181/100; PULSE 100; RESP 18; O2SAT 91
[2025-03-29 18:58] VITALS: TEMP 36.4
--- NOTE | 2025-03-29 19:06 | CRLHL7_ITS ---
For Patients: As a result of the Cures Act, medical imaging exams and procedure reports are released immediately into your electronic medical record. You may view this report before your referring provider. If you have questions, please contact your health care provider. INDICATION: Neurologic dysfunction COMPARISON: None TECHNIQUE: CT of the head without contrast. FINDINGS: Brain Parenchyma: No acute infarct, acute intracranial hemorrhage, mass effect, or midline shift. Trace periventricular white matter hypodensity, suggestive of chronic microvascular ischemic changes. Ventricles: No hydrocephalus. Extra-axial Spaces: No abnormal fluid collection. Paranasal sinuses: No significant mucosal thickening. Orbits: Unremarkable Mastoid Sinuses: Unremarkable Cranium: No acute fracture Soft tissues: Unremarkable IMPRESSION: No CT evidence of an acute intracranial process. Please note that all CT scans at this facility use dose modulation, iterative reconstruction, and/or weight-based dosing when appropriate to reduce radiation dose to as low as reasonably achievable. Dictated by Deny Griffith MD @ 03/29/2025 7:37:22 PM (Electronically Signed)
[2025-03-29 19:13] VITALS: O2SAT 93
--- NOTE | 2025-03-29 19:13 | CRLHL7_ITS ---
For Patients: As a result of the Century Cures Act, medical imaging exams and procedure reports are released immediately into your electronic medical record. You may view this report before your referring provider. If you have questions, please contact your health care provider. INDICATION: Acute stroke. TECHNIQUE: CTA head with contrast bolus tracking, 3D angiographic rendering using maximum intensity projection (MIP) and images permanently archived. FINDINGS: There is normal opacification of the intracranial vasculature. There is no large vessel occlusion. No aneurysm is identified. IMPRESSION: No acute intracranial abnormality at CTA. Please note that all CT scans at this facility use dose modulation, iterative reconstruction, and/or weight-based dosing when appropriate to reduce radiation dose to as low as reasonably achievable. Dictated by Roberto Carlos Bettencourt MD @ 03/30/2025 11:48:21 AM (Electronically Signed)
--- NOTE | 2025-03-29 19:13 | CRLHL7_ITS ---
For Patients: As a result of the Century Cures Act, medical imaging exams and procedure reports are released immediately into your electronic medical record. You may view this report before your referring provider. If you have questions, please contact your health care provider. INDICATION: Acute stroke. TECHNIQUE: CTA neck with contrast bolus tracking, 3D angiographic rendering using maximum intensity projection (MIP) and images permanently archived. FINDINGS: There is carotid atherosclerosis bilaterally. There is no significant carotid artery stenosis or dissection. There is no significant vertebral artery stenosis or dissection. Small indeterminate thyroid nodules are present. The soft tissues of the neck are within normal limits. The cervical spine is in normal alignment. Degenerative changes are noted in the cervical spine. IMPRESSION: No significant carotid or vertebral artery stenosis or dissection. Please note that all CT scans at this facility use dose modulation, iterative reconstruction, and/or weight-based dosing when appropriate to reduce radiation dose to as low as reasonably achievable. Dictated by Roberto Carlos Bettencourt MD @ 03/30/2025 11:50:16 AM (Electronically Signed)
[2025-03-29 19:17] LABS: Lactate* 2.9 mmol/L (0.5-1.9)
[2025-03-29 19:18] LABS: Basophils Absolute Auto 0.02 K/uL (0.00-0.30); Basophils Percent Auto 0.3 % (0.0-3.0); Eosinophils Absolute Auto 0.08 K/uL (0.00-0.50); Eosinophils Percent Auto 1.1 % (0.0-7.0); Hematocrit* 39.5 % (33.0-51.0); Hemoglobin* 12.9 gm/dL (12.0-16.0); Immature Granulocytes Abs Auto 0.14 K/uL (0.00-0.30); Lymphocytes Absolute Auto 2.58 K/uL (0.90-2.90); Lymphocytes Percent Auto 36.2 % (20-44); Mean Corpuscular HGB Conc 33 gm/dL (32-36); Mean Corpuscular Hemoglobin 31 pg (26-34); Mean Corpuscular Volume 96 fL (80-100); Monocytes Percent Auto 5.8 % (0.0-11.0); Neutrophils Percent Auto 54.6 % (42.0-72.0); Platelet Count* 217 K/uL (140-440); RDW Coefficient of Variation % 12.4 % (11.5-15.5); Red Blood Count* 4.11 m/uL (4.00-5.20); White Blood Count* 7.13 K/uL (4.50-11.00)
[2025-03-29 19:26] LABS: Slide Review Reflex No
[2025-03-29 19:32] LABS: Albumin* 4.6 g/dL (3.3-5.0); Chloride* 113 mmol/L (96-114); Sodium* 144 mmol/L (135-149)
[2025-03-29] MEDS: 0.9 % SODIUM CHLORIDE 500 ML 500 ML IV (19:32)
[2025-03-29] MEDS: ONDANSETRON 2 MG/ML inj 4 MG IVP (19:32)
[2025-03-29 19:34] LABS: Blood Urea Nitrogen* 20 mg/dL (7-30); Creatinine* 0.9 mg/dL (0.5-1.5); Estimated Glomerular Filt Rate 63 ml/min
[2025-03-29 19:35] LABS: Alanine Aminotransferase* 23 U/L (4-35); Alkaline Phosphatase* 55 U/L (40-150); Aspartate Amino Transferase* 42 U/L (12-35); Bilirubin Direct* 0.2 mg/dL (0.0-0.5); Bilirubin Total* 0.3 mg/dL (0.1-1.5); Calcium* 9.1 mg/dL (8.4-10.6); Carbon Dioxide* 18 mmol/L (20-32); Glucose* 116 mg/dL (60-115); Total Protein* 7.3 g/dL (6.0-8.3)
[2025-03-29 19:36] LABS: Ethanol* 0.11 % (0.01-0.03); Potassium* 2.9 mmol/L (3.6-5.1)
[2025-03-29 19:43] LABS: Anion Gap 13 mEq/L (7-15); C Reactive Protein* < 0.5 mg/dL (0.5-1.0)
[2025-03-29 19:54] LABS: Troponin I* < 0.01 ng/mL (0.01-0.04)
--- NOTE | 2025-03-29 20:03 | ED.GENADULT ---
HPI - General Adult General Chief complaint: Syncope/Fainted Stated complaint: unconscious Time Seen by Provider: 03/29/25 18:51 Source: patient, family and EMS Mode of arrival: EMS Limitations: physical limitation (Speech difficult to understand at baseline) History of Present Illness HPI narrative: 84-year-old female presenting today via EMS after she had an episode of presyncope. Patient was walking from the kitchen to the garage to go to a libertarian with her sister all the sudden she stated that she could not walk anymore. She sat down started vomiting. She became unresponsive but remained in upright sitting position did not fall over. Eyes would flutter open and shut. EMS was called patient was brought to the ER for evaluation. She is complaining of a headache. Patient can not really tell me what happened, just states that she feels terrible. She did have a deepak while playing cards with her sister today. Patient lives independently. She drove to her sister's house today from [place]. Past medical history significant for hyperlipidemia, history of breast cancer, depression, vitamin-D deficiency, generalized muscle weakness, ascending aortic dilation, history of cirrhosis of the liver, tremor, closed left-sided hip fracture on the left. Family history: Mother, sister and brother all had colon cancer. Sister and son with diabetes, son with coronary artery disease and stents placement of 54. Medications: Iron, daily baby aspirin, Topamax for her tremor, Celexa for depression and Crestor. Related Data Allergies Allergy/AdvReac Type Severity Reaction Status Date / Time No Known Drug Allergies Allergy Verified 03/29/25 19:59 Review of Systems Status of ROS: Reports: unobtainable due to medical condition [facility] Social History service: No Exam Narrative: Exam Narrative: Thin, frail, elderly patient , dry heaving. Difficult time answering questions. Voice is very difficult to understand as tremor makes it difficult for her to speak. Her sister states that that is normal for her. HEENT: Normocephalic atraumatic. Pupils are equally round reactive to light. Extraocular muscles are intact. Conjunctivae are moist without any icterus noted. . Cardiovascular: Heart is regular rate and rhythm. Lungs: Clear to auscultation bilaterally. Abdomen: Soft and nontender nondistended with normal bowel sounds. Extremities: Bilateral lower extremities show 1+ pitting edema bilaterally. Skin: Well perfused. Strength is 5/5 of the upper extremities. 4/5 of the left lower extremity however, this is a like she had surgery on. There is no nystagmus either horizontally or vertically. Const: Vital Signs, click to edit/add: Vital Signs - 24 hr 03/29/25 18:53 03/29/25 18:58 03/29/25 19:13 Temperature 97.5 F L Pulse Rate [Right Pulse Oximeter] 100 Respiratory Rate 18 Blood Pressure [Ri ght Upper Arm] 181/100 H Pulse Oximetry 91 93 Oxygen Delivery Me thod Room Air Course Course ED Course: Upon arrival in brief examination, patient went straight away to CT scan in a code stroke was called. IV established. Initial head CT was unremarkable. Head and neck CTA both unremarkable for the preliminary reports. Dr. Sal, stroke neurology at [facility], recommending outpatient MRI. EKG, read by me, shows normal sinus rhythm with a pulse of 99. Left axis deviation and a left bundle branch block. Do not have a previous one to compare this to. Troponin is normal. Lactate is elevated at 2.9. Because of this, we started 500 mL of normal saline over 1 hour at this time. Normal CBC. Chemistry show potassium low at 2.9, normal sodium. BUN and creatinine are unremarkable at 20 and 0.9 respectively. Blood alcohol elevated at 0.11. IV Zofran was given which helped somewhat however vomiting did continue sporadically-vomit was dark brown. Gastroccult positive. Patient continued to deny any chest or abdominal pain. IV Protonix and potassium started at this time. Dr. Berta LINARES at [facility] - who is in agreement with transferred. Dr. Lopez, hospitalist at [facility] who recommends octerotide and ceftriaxone in addition to the IV Protonix. Vital Signs Vital signs: Initial Vital Signs Pulse Rate 100 03/29/25 18:53 Pulse Rhythm Regular 03/29/25 18:53 Pulse Strength 3+ Normal 03/29/25 18:53 Respiratory Rate 18 03/29/25 18:53 Blood Pressure 181/100 H 03/29/25 18:53 Blood Pressure Mean 127 H 03/29/25 18:53 Blood Pressure Position Semi-Fowlers 03/29/25 18:53 Pulse Oximetry 91 03/29/25 18:53 Oxygen Delivery Method Room Air 03/29/25 18:53 Vital Signs Pulse Rate 100 03/29/25 18:53 Respiratory Rate 18 03/29/25 18:53 Blood Pressure 181/100 H 03/29/25 18:53 Pulse Oximetry 91 03/29/25 18:53 Oxygen Delivery Method Room Air 03/29/25 18:53 Temperature 97.5 F L 03/29/25 18:58 Pulse Rate 100 03/29/25 18:53 Respiratory Rate 18 03/29/25 18:53 Blood Pressure 181/100 H 03/29/25 18:53 Pulse Oximetry 93 03/29/25 19:13 Oxygen Delivery Method Room Air 03/29/25 18:53 Medications Administered Medications: Discontinued Medications Generic Name Dose Route Start Last Admin Trade Name Freq PRN Reason Stop Dose Admin Sodium Chloride 500 mls @ 500 mls/hr 03/29/25 19:18 03/29/25 20:19 0.9 % Sodium Chloride 500 Ml IV 03/29/25 20:17 Infused .Q1H ONE Infusion Ondansetron HCl 4 mg 03/29/25 19:13 03/29/25 19:32 Ondansetron 2 Mg/Ml Inj IVP 03/29/25 19:14 4 mg ONCE ONE Administration Medical Decision Making MDM Narrative Medical decision making narrative: 84-year-old female with acute episode of presyncope, upper GI bleed, hypokalemia, left bundle-branch block. Plan per above. Patient will be transferred to [facility] up to 8 hour bed delayed at this time. Medical Records Medical records reviewed: Yes I reviewed the patient's medical records Lab Data Lab results reviewed: Yes I reviewed the patient's lab results Labs: Lab Results 03/29/25 03/29/25 03/29/25 Range/Units 19:10 19:14 20:13 WBC 7.13 (4.50-11.00) K/uL RBC 4.11 (4.00-5.20) m/uL Hgb 12.9 (12.0-16.0) gm/dL Hct 39.5 (33.0-51.0) % MCV 96 (80-100) fL MCH 31 (26-34) pg MCHC 33 (32-36) gm/dL RDW Coeff of Mei 12.4 (11.5-15.5) % Plt Count 217 (140-440) K/uL Neut % (Auto) 54.6 (42.0-72.0) % Lymph % (Auto) 36.2 (20-44) % Turner % (Auto) 5.8 (0.0-11.0) % Eos % (Auto) 1.1 (0.0-7.0) % Baso % (Auto) 0.3 (0.0-3.0) % Neut # (Auto) 3.90 (1.7-7.0) K/uL Lymph # (Auto) 2.58 (0.90-2.90) K/uL Turner # (Auto) 0.40 (0.00-0.90) K/UL Eos # (Auto) 0.08 (0.00-0.50) K/uL Baso # (Auto) 0.02 (0.00-0.30) K/uL Abs Immat Gran (auto) 0.14 (0.00-0.30) K/uL Imm/Tot Granulo (auto) 2.0 % Sodium 144 (135-149) mmol/L Potassium 2.9 L* (3.6-5.1) mmol/L Chloride 113 (96-114) mmol/L Carbon Dioxide 18 L (20-32) mmol/L Anion Gap 13 (7-15) mEq/L BUN 20 (7-30) mg/dL Creatinine 0.9 (0.5-1.5) mg/dL Estimated GFR 63 ml/min Glucose 116 H (60-115) mg/dL Lactate 2.9 H (0.5-1.9) mmol/L Calcium 9.1 (8.4-10.6) mg/dL Total Bilirubin 0.3 (0.1-1.5) mg/dL Direct Bilirubin 0.2 (0.0-0.5) mg/dL AST 42 H (12-35) U/L ALT 23 (4-35) U/L Alkaline Phosphatase 55 (40-150) U/L Troponin I < 0.01 (0.01-0.04) ng/mL C-Reactive Protein < 0.5 L (0.5-1.0) mg/dL Total Protein 7.3 (6.0-8.3) g/dL Albumin 4.6 (3.3-5.0) g/dL Gastric Fluid pH Gastric Occult Blood (Negative) Ethyl Alcohol 0.11 H (0.01-0.03) % POC Creatinine 0.9 (0.6-1.3) mg/dl POC Troponin I 0.01 (0.01-0.04) ng/ml 03/29/25 Range/Units 20:15 WBC (4.50-11.00) K/uL RBC (4.00-5.20) m/uL Hgb (12.0-16.0) gm/dL Hct (33.0-51.0) % MCV (80-100) fL MCH (26-34) pg MCHC (32-36) gm/dL RDW Coeff of Mei (11.5-15.5) % Plt Count (140-440) K/uL Neut % (Auto) (42.0-72.0) % Lymph % (Auto) (20-44) % Turner % (Auto) (0.0-11.0) % Eos % (Auto) (0.0-7.0) % Baso % (Auto) (0.0-3.0) % Neut # (Auto) (1.7-7.0) K/uL Lymph # (Auto) (0.90-2.90) K/uL Turner # (Auto) (0.00-0.90) K/UL Eos # (Auto) (0.00-0.50) K/uL Baso # (Auto) (0.00-0.30) K/uL Abs Immat Gran (auto) (0.00-0.30) K/uL Imm/Tot Granulo (auto) % Sodium (135-149) mmol/L Potassium (3.6-5.1) mmol/L Chloride (96-114) mmol/L Carbon Dioxide (20-32) mmol/L Anion Gap (7-15) mEq/L BUN (7-30) mg/dL Creatinine (0.5-1.5) mg/dL Estimated GFR ml/min Glucose (60-115) mg/dL Lactate (0.5-1.9) mmol/L Calcium (8.4-10.6) mg/dL Total Bilirubin (0.1-1.5) mg/dL Direct Bilirubin (0.0-0.5) mg/dL AST (12-35) U/L ALT (4-35) U/L Alkaline Phosphatase (40-150) U/L Troponin I (0.01-0.04) ng/mL C-Reactive Protein (0.5-1.0) mg/dL Total Protein (6.0-8.3) g/dL Albumin (3.3-5.0) g/dL Gastric Fluid pH 5.0 Gastric Occult Blood POSITIVE A (Negative) Ethyl Alcohol (0.01-0.03) % POC Creatinine (0.6-1.3) mg/dl POC Troponin I (0.01-0.04) ng/ml Imaging Data CT scan - head: Attestation: I have reviewed the pertinent imaging results. Radiologist's impression: TECHNIQUE: CT of the head without contrast. FINDINGS: Brain Parenchyma: No acute infarct, acute intracranial hemorrhage, mass effect, or midline shift. Trace periventricular white matter hypodensity, suggestive of chronic microvascular ischemic changes. Ventricles: No hydrocephalus. Extra-axial Spaces: No abnormal fluid collection. Paranasal sinuses: No significant mucosal thickening. Orbits: Unremarkable Mastoid Sinuses: Unremarkable Cranium: No acute fracture Soft tissues: Unremarkable IMPRESSION: No CT evidence of an acute intracranial process. ECG Data Attestation: I personally reviewed and interpreted this ECG as follows: Critical Care Time Critical Care Time Total Critical Care Time in Minutes: 60 Discharge Plan Discharge Clinical Impression: Pre-syncope, Acute upper GI bleed, Hematemesis, Hypokalemia Patient Disposition: [facility] Condition: Stable Stand Alone Forms: [facility] Info Inst[facility]
[2025-03-29 20:09] LABS: Troponin, Point-of-Care* 0.01 ng/ml (0.01-0.04)
[2025-03-29 20:15] LABS: Creatinine, Point-of-Care* 0.9 mg/dl (0.6-1.3)
[2025-03-29 20:17] LABS: Gastric Occult Blood* POSITIVE (Negative)
--- OUTSIDE RECORDS SUMMARY | 2025-03-29 20:20 | XMS_ITS ---
Author Organization [facility] Care Team Providers Care Art Conservator Name Role Phone Ermelinda Orr Unavailable Unavailable Ivonne Giron Unavailable Unavailable Allergies and adverse reactions No Known Allergies Care Team Name Role Address Phone Organization Dates Ivonne Giron PCP [address], [address], [place] (Office): : [facility] 10/01/2023 - 11/04/2023 Ermelinda Orr [address] [place], [address], [place] (Office): : [facility] 10/01/2023 - 11/04/2023 Immunizations Immunization Status Vaccine Details Vaccine Code CodeSystem Date Notes Td: Tetanus/Diphther ia completed tetanus and diphtheria toxoids, adsorbed, preservative free, for adult use (2 Lf of tetanus toxoid and 2 Lf of diphtheria toxoid) 09 CVX created date: 10/03/2023 administer ed date: 04/13/2007 Fluzone High-Dose influenza vaccine cancelled Influenza, high-dose, split virus, trivalent, injectable, preservative free 135 CVX created date: 10/03/2023 consent date: 10/07/2023 Educated by Klarissa Mathur on 10/07/2023 Pneumococcal 23 completed pneumococcal polysaccharide vaccine, 23 valent 33 CVX created date: 10/03/2023 consent date: 10/03/2023 administer ed date: 04/13/2007 Prevnar 20 cancelled Pneumococcal conjugate vaccine 20-valent (PCV20), polysaccharide [id number] conjugate, adjuvant, preservative free 216 CVX created date: 10/03/2023 consent date: 10/07/2023 Educated by Klarissa Mathur on 10/07/2023 Pfizer Covid [id number] Formula cancelled SARS-COV-2 (COVID-19) vaccine, mRNA, spike protein, LNP, preservative free, lynnette-sucrose, 30 mcg/0.3 mL dose 309 CVX created date: 10/03/2023 consent date: 10/07/2023 Educated by Klarissa Mathur on 10/07/2023 Mental Status Section Date Assessment Total Score Description 11/04/2023 CAM 0 No delirium ind icated 10/07/2023 BIMS 15 cognitively int act CAM 0 No delirium ind icated PHQ-9 00 Problems Problem # Description Date of onset Resolved Date Code CodeSystem Concern Status 1 ACUTE KIDNEY FAILURE, UNSPECIFIED 10/01/[address] active 2 ACUTE POSTHEMORRHAGIC ANEMIA 10/01/[address] active 3 ATHEROSCLEROSIS OF AORTA 10/01/[address] active 4 CHRONIC KIDNEY DISEASE, UNSPECIFIED 10/01/[address] active 5 DEPRESSION, UNSPECIFIED 10/01/[address] active 6 ESSENTIAL TREMOR 10/01/[address] active 7 FRACTURE OF UNSPECIFIED PART OF NECK OF LEFT FEMUR, SUBSEQUENT ENCOUNTER FOR CLOSED FRACTURE WITH ROUTINE HEALING 10/01/[address] active 8 HISTORY OF FALLING 10/01/[address] active 9 HYPERLIPIDEMIA, UNSPECIFIED 10/01/[address] active 10 LEFT BUNDLE-BRANCH BLOCK, UNSPECIFIED 10/01/[address] active 11 OTHER SPECIFIED ANXIETY DISORDERS 10/01/[address] active 12 PERSONAL HISTORY OF MALIGNANT NEOPLASM OF BREAST 10/01/[address] active 13 THORACIC AORTIC ECTASIA 10/01/[address] active 14 UNSPECIFIED CIRRHOSIS OF LIVER 10/01/[address] active 15 UNSPECIFIED OPEN WOUND OF LEFT THUMB WITH DAMAGE TO NAIL, SUBSEQUENT ENCOUNTER 10/01/[address] active Reason for Referral No Reasons for Referral Entered Social History Social History Observation Description Start Date End Date Code Code System Current Smoking Status Tobacco smoking consumption unknown 606811367 SNOMED CT Sex Assigned At Female 1940 26748-3 [facility] Gender Identity Vital Signs Code Code System Vitals Name Values and Units Timing Information 8462-4 [facility] Blood Pressure-Diastolic Value=70 Un its=mmHg 11/04/2023 8480-6 [facility] Blood Pressure-Systolic Uaoxm=189 Un its=mmHg 11/04/2023 8310-5 [facility] Body Temperature Value=97.5 Units= F 11/04/2023 8867-4 [facility] Heart rate Value=76.0 Units=/min 09/2024 84600-7 [facility] O2 % BldC Oximetry Value=93.0 Units= % 11/04/2023 01690-5 [facility] Pain Level Value=0.0 11/04/2023 9279-1 [facility] Respiratory Rate Value=16.0 Units=/m in 11/04/2023 50444-8 [facility] Weight Opdnt=710.6 Units=Lbs 05/2024 [facility]302[facility] Height Value=62.0 Units=Inches 10/03/2023
--- OUTSIDE RECORDS SUMMARY | 2025-03-29 20:20 | XMS_ITS | Encounter Summary ---
Author Organization [facility] Address [address] [place] [address] Care Team Providers Care Laborer [employer] Name Role Phone Blair Gutiérrez MD Primary Care Provider [phone] Blair Gutiérrez MD Unavailable Idalia Lara PT Unavailable Taylor Mccoy MD Unavailable Eveline Streeter RN Unavailable + [phone] Taylor Mccoy MD Unavailable [phone] Pawel Dubon MD Unavailable [phone] Eran De La Rosa MD Unavailable [phone] Areli Oseguera RN Unavailable Blair Gutiérrez MD Primary Care Provider [phone] Blair Gutiérrez MD Unavailable La Flores MD Unavailable + [phone] (Fgs), [facility] le Ivonne Giron APRN CALIBRATION TESTER Unavailable [phone] Areli Oseguera RN Unavailable Deepa Dobbins MD Unavailable [phone] Blair Gutiérrez MD Unavailable No Ref-Primary, Physician Unavailable [phone] Madeline Fischer CHValentina Unavailable [phone] Reason for Visit * Reason Comments Medication Refill Encounter Details Date Type Department Care Team (Late st Contact Info) Description 08/11/[address] [phone] Blair Gutiérrez MD [address] [place] [address] [phone] Medication Refill Social History Tobacco Use Types Packs/Day Years Used Date Smoking Tobacco: Former Smokeless Tobacco: Never Comments:rare at 18 Alcohol Use Standard Drinks/Week Comments Yes 0 (1 standard drink = 0.6 oz pur e alcohol) 1-2 drinks per month PHQ-2 Answer Date Recorded PHQ-2 Score 0 08/11/2021 Comments No Sex and Gender Information Value Date Recorded Sex Assigned at Not on file Legal Sex 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 No / Unsure 08/06/2021 1:55 PM CDT documented as of this encounter Miscellaneous Notes * Telephone Encounter - Deny Lima RN - 08/14/2021 8:50 AM CDT Recent Rx sent in. Deny Boateng RN [facility] Triage documented in this encounter Plan of Treatment Not on file documented as of this encounter Visit Diagnoses Diagnosis Hyperlipidemia LDL goal <130 Other and unspecified hyperlipidemia Tremor Abnormal involuntary movements Major depressive disorder, single episode, mild documented in this encounter Additional Health Concerns Infection Onset Date Last Indicated Resolved Time Rule Out COVID-19 08/18/2023 08/18/2023 08/18/2023 8:31 PM CDT COVID-19 08/18/2023 08/18/2023 09/08/2023 11:3 9 PM ARCADE TECHNICIAN Assessment Noted Time PHQ-9 Depression Total Score: 0 08/11/20 12:14 PM CDT documented as of this encounter Care Teams [employer]orer [employer] Relationship Specialty Start Date End Date Blair Gutiérrez MD [address] [place] [address] PCP - General Family Practice 08/24/11 09/07/23 Blair Gutiérrez MD [address] [place] [address] PCP - General Family Medicine 09/08/23 Blair Gutiérrez MD [address] [place] [id number] Assigned PCP 07/27/12 05/13/23 Idalia Lara, PT [address] [place] [address] [address] [place] [address] Specialty Aviation Technician Aircraft Physical Medicine and Rehabilitation 09/04/19 Taylor Mccoy MD [address] [place] [address] Physical Medicine and Rehabilitation 09/04/19 [place] [address] Specialty Aviation Technician Aircraft Physical Medicine and Rehabilitation 09/04/19 Taylor Mccoy MD [facility] [address] [place] [address] Assigned Neuroscience Provider 08/15/20 02/20/22 Pawel Dubon MD [address] [place] [address] [id number] Assigned Surgical Provider 02/12/23 08/14/24 [place] [address] [place] [address] [id number] Assigned PCP 05/14/23 09/09/23 Areli Oseguera, RN Lead Aviation Technician Aircraft [facility] - [facility] 08/23/2308/24 Blair Gutiérrez MD [address] [place] [address] [phone] Assigned PCP 09/10/23 La Flores MD [address] [facility] [place] [address] Assigned Heart and Vascular Provider 09/17/23 (Fgs), [facility] [address] [place] [phone] 10/02/23 10/30/23 Ivonne Giron APRN CALIBRATION TESTER [address] [place] [address] Nurse Practitioner Family Medicine 10/02/23 10/30/23 Areli Oseguera, RN Lead Aviation Technician Aircraft Primary [facility] - [facility] 10/03/2311/08 Deepa Dobbins MD [address] [place] [address] Cardiovascular Disease 10/12/23 [place] [address] [place] [address] Assigned Pain Medication Provider 10/01/23 11/16/23 No Ref-Primary, Physician 11/10/23 Madeline Fischer Valentina Community Health Worker 12/02/23 12/12/23 documented as of this encounter
--- OUTSIDE RECORDS SUMMARY | 2025-03-29 20:20 | XMS_ITS | Clinical Summary ---
Author Organization [facility] Address [address] [place] [id number] Care Team Providers Care Union Contract Representative Name Role Phone Idalia Lara PT Unavailable [phone] Taylor Mccoy MD Unavailable Eveline Streeter RN Unavailable + [phone] Blair Gutiérrez MD Primary Care Provider Blair Gutiérrez MD Unavailable La Flores MD Unavailable Deepa Dobbins MD Unavailable No Ref-Primary, Physician Unavailable [phone] Allergies No known active allergies Medications citalopram (CELEXA) 20 MG tabletIndicati ons:Major depressive disorder, single episode, mild Take 1 tablet (20 mg) by mouth daily. 90 tablet 3 03/25/20 25 Active rosuvastatin (CRESTOR) 10 MG tabletIndicati ons:Ascending aorta dilatation,Ath erosclerosis of abdominal aorta,Abdomina l aortic aneurysm (AAA) without rupture, unspecified part,Hyperlipi demia LDL goal <70 Take 1 tablet (10 mg) by mouth daily. 90 tablet 3 03/25/20 25 Active topiramate (TOPAMAX) 100 MG tabletIndicati ons:Tremor Take 1 tablet (100 mg) by mouth 2 times daily. 180 tablet 3 03/25/20 25 Active aspirin 81 MG EC tabletIndicati ons:VTE Prophylaxis Take 1 tablet (81 mg) by mouth 2 times daily 84 tablet 09/28/20 23 2024 Discontinued acetaminophen (TYLENOL) 325 MG tabletIndicati ons:Closed fracture of left hip, initial encounter (H) Take 3 tablets (975 mg) by mouth every 8 hours 50 tablet 09/28/20 23 2024 Discontinued senna-docusate (SENOKOT-S/PER ICOLACE) 8.6-50 MG tabletIndicati ons:Closed fracture of left hip, initial encounter (H) Take 1 tablet by mouth 2 times daily as needed for constipation 90 tablet 3 11/18/19 24 2024 Discontinued ferrous sulfate (FEROSUL) 325 (65 Fe) MG tabletIndicati ons:Iron deficiency anemia, unspecified iron deficiency anemia type Take 1 tablet (325 mg) by mouth every other day 11/18/19 24 2024 Discontinued cephALEXin (KEFLEX) 500 MG capsuleIndicat ions:Sebaceous cyst Take 1 capsule (500 mg) by mouth 2 times daily 20 capsule 11/18/19 24 2024 Discontinued Niacin-Inosito l (GNP NIACIN FLUSH FREE) 400-100 MG CAPSIndication s:Hyperlipidem ia LDL goal <70 Take 1 capsule by mouth daily. 90 capsule 3 08/15/20 24 2024 Discontinued topiramate (TOPAMAX) 100 MG tabletIndicati ons:Tremor TAKE 1 TABLET TWICE DAILY 180 tablet 01/04/20 25 2024 Discontinued(R eorder (No AVS)) citalopram (CELEXA) 20 MG tabletIndicati ons:Major depressive disorder, single episode, mild TAKE 1 TABLET EVERY DAY 90 tablet 01/04/20 25 2024 Discontinued(R eorder (No AVS)) rosuvastatin (CRESTOR) 10 MG tabletIndicati ons:Hyperlipid emia LDL goal <70,Atheroscle rosis of abdominal aorta TAKE 1 TABLET EVERY DAY 90 tablet 01/04/20 25 2024 Discontinued(R eorder (No AVS)) Active Problems Problem Noted Date Diagnosed Date Left wrist pain 09/27/2023 Closed left hip fracture 09/27/2023 Fall at home, initial encounter 09/27/2023 Cirrhosis of liver 09/20/2023 Ascending aorta dilatation 09/09/2023 COVID-19 08/18/2023 Ureteral stone 01/05/2023 Pericardial cyst 01/05/2023 Renal cyst 01/05/2023 Generalized muscle weakness 01/05/2023 Splenic lesion 01/05/2023 Urinary tract infection with hematuria, site uns pecified 01/05/2023 Tremor Hyperlipidemia LDL goal <70 Major depressive disorder, single episode, mild Breast cancer Colon polyps Vitamin D deficiency Resolved Problems Problem Noted Date Diagnosed Date Resolved Date Advanced directives, counseling/discussion 07/12/2011 04/09/2024 Overview (08/06/2011): Advance Directive Problem List Overview: Name Relationship Phone Primary Health Care Agent Connie Clemens daughter [phone] Alternative Health Care Agent Yang Clemens son [phone] Discussed advance care planning with patient; information given to patient to review. 07/12/2011 Encounters Date Type Department Care Team Description 03/25/2025 1:30 PM CDT Office Visit [address] [phone] Blair Gutiérrez MD Routine general medical examination at a health [...] osteoporosis; Medication monitoring encounter; Asymptomatic menopausal state 03/25/2025 Travel 01/03/[address] [phone] Blair Gutiérrez MD Medication Refill from Last 3 Months Immunizations Immunization Administration Dates Next Due Pneumococcal 23 valent 04/13/2007 Td (Adult), Adsorbed 04/13/2007 Family History Medical History Relation Comments Colon Cancer Brother 1 Cancer Brother 2 multiple - at age 68 Colon Cancer Brother 2 Diabetes Brother 2 Other - See Comments Daughter Long Covid with clots Coronary Artery Disease Father age 83 Parkinsonism Maternal Uncle Colon Cancer Mother age 85 Heart Failure Mother Colon Cancer Other neice at age 44 Diabetes Sister 1 Kidney failure Sister 1 Colon Cancer Sister 2 mets to liver Diabetes Sister 2 Coronary Artery Disease Son 1 s/p sten t placement in Oct 2021, needs further stents soon Diabetes Son 1 Other - See Comments Son 2 CAH Relation Status Comments Brother 1 Brother 2 Daughter Alive Father Maternal Grandfather Maternal Grandmother Maternal Uncle Mother Other Paternal Grandfather Paternal Grandmother Sister 1 Alive Sister 2 Son 1 Alive Son 2 Alive Social History Tobacco Use Types Packs/Day Years Used Date Smoking Tobacco: Former Smokeless Tobacco: Never Tobacco Cessation:Counseling Given: Not Answered Comments:rare at 18 Alcohol Use Standard Drinks/Week Comments Not Currently 0 (1 standard drink = 0.6 oz pur e alcohol) none Social Connection and Isolation Panel [NHANES] A nswer Date Recorded Frequency of Communication with Friends and Fami ly Not on file 03/25/2025 How often do you get together with friends or re latives? Once a week 03/25/2025 Attends Holiness Services Not on file 03/25 Active Member of Clubs or Organizations Not on f ile 03/25/2025 Attends Club or Organization Meetings Not on tim e 03/25/2025 Marital Status Not on file 03/25/2025 PHQ-2 Answer Date Recorded PHQ-2 Score 0 03/25/2025 [facility] of Occupat ional Health - Occupational Stress [...] Date Recorded Do you have housing? (Ree castro is defined as stable permanent housing and does not include staying outside in a car, in a tent, in an abandoned building, in an overnight senior living, or couch-surfing.) Yes 03/25/2025 Are you worried [...] on file Legal Sex Female 3:23 AM PRINT CONTROLLER Gender Identity Not on file Sexual Orientation Not on file Occupation Industry Job Start Date Job End Date Not on file Not on file Not on file Not on file Last Filed Vital Signs Vital Sign Reading Time Taken Comments Blood Pressure 126/70 11/18/2023 9:48 AM PRINT CONTROLLER Pulse 90 11/18/2023 9:48 AM PRINT CONTROLLER Temperature 36.6 C (97.8 F) 11/18/2023 9:48 AM PRINT CONTROLLER Respiratory Rate 16 11/03/2023 8:21 AM PRINT CONTROLLER Oxygen Saturation 96% 11/18/2023 9:48 AM PRINT CONTROLLER Inhaled Oxygen Concentration - - Weight 65.8 kg (145 lb) 11/18/2023 9:48 AM PRINT CONTROLLER Height 157.5 cm (5' 2) 11/03/2023 8:21 AM PRINT CONTROLLER Body Mass Index 26.52 11/03/2023 8:21 AM PRINT CONTROLLER Plan of Treatment Health Maintenance Due Date Last Done Comments CT COLONOGRAPHY 1940 FLEX SIG 1940 sDNA (Cologuard) 1940 DEXA 1958 HEPATITIS A VACCINE (1 of 2 - Risk 2-dose series) 1959 ZOSTER VACCINE (1 of 2) 1990 HEPATITIS B VACCINE (1 of 3 - Risk 3-dose series) 2000 DTAP/TDAP/TD VACCINE (1 - Tdap) 04/14/2007 04/13/2007 PNEUMOCOCCAL VACCINE 50+ YEARS (2 of 2 - PCV) 04/13/2008 04/13/2007 RSV VACCINE (1 - 1-dose 75+ series) 2015 FIT 11/17/2016 11/17/2015, 02/22, 03/12/2013, Additional history exists COLONOSCOPY 05/25/2020 05/25/2017, 04/24, 08/11/2011 MAMMO SCREENING 11/21/2020 11/21/2019, 07/25, 03/08/2017, Additional history exists COVID-19 VACCINE ( - season) 2024 INFLUENZA VACCINE (Season Ended) 2025 PHQ-9 09/24/2025 03/25/2025, 10/25, 08/25/2023, Additional history exists ANNUAL REVIEW OF HM ORDERS 03/25/202603/25, 01/14/2023, 2021, Additional history exists FALL RISK ASSESSMENT 03/25/2026 03/25/2025, 09/20/2023, 01/14/2023, Additional history exists LIPID 03/25/2026 03/25/2025, 11/25, 11/10/2021, Additional history exists MEDICARE ANNUAL WELLNESS VISIT 03/25/2026 03/25/2025, 09/20/2023, 11/10/2021, Additional history exists ADVANCE CARE PLANNING 03/25/2030 03/25/2025 , 10/19/2023, 10/03/2023, Additional history exists DEPRESSION ACTION PLAN Completed , 07/31/2018, 04/12/2017, Additional history exists COLORECTAL CANCER SCREENING Discontinued HPV VACCINE Aged Out No longer eligi ble based on patient's age to complete this topic MENINGITIS VACCINE Aged Out No longer eligible based on patient's age to complete this topic Medical Devices Implanted Type Area Trimmer Machine Operator Device Identifier Shelf Expiration Date Model / Serial / Lot Bone Cement Simplex Full Dose 6191-1-001 - [id number] Implanted:Qty: 2 on 09/27/2023 by Ronni Villegas MD at [facility] Cement, Bone Left: Hip [employer] [id number] 08/23/2025 6191-1-001 / / [id number] Imp Scr Bone Can Timothy 6.5x30mm 1217-30-500 - [id number] Implanted:Qty: 1 on 09/27/2023 by Ronni Villegas MD at [facility] Metallic Hardware/A nchor Left: Hip [employer] [id number] 04/22/2033 [id number] / / [id number] Imp Scr Bone Can Timothy 6.5x35mm 1217-35-500 - [id number] Implanted:Qty: 1 on 09/27/2023 by Ronni Villegas MD at [facility] Metallic Hardware/A nchor Left: Hip [employer] [id number] 12/21/2032 [id number] / / [id number] Stent Ureteral Polaris Ultra [id number] - [id number] Implanted:Qty: 1 on 01/27/2023 by Pawel Dubon MD at [facility] Stent Left: Ureter [employer] 09/13/2025 [id number] / / [id number] Imp Cup Timothy [place]field 50mm 1217-22-050 - [id number] Implanted:Qty: 1 on 09/27/2023 by Ronni Villegas MD at [facility] Total Joint Component/ Insert Left: Hip [employer] [id number] 12/21/2032 [id number] / / [id number] Imp Liner Hip Depuy Mayfield Altrx [id number] +4 1221-32450 - [id number] Implanted:Qty: 1 on 09/27/2023 by Ronni Villegas MD at [facility] Total Joint Component/ Insert Left: Hip [employer] [id number] 03/23/2028 1221-32-450 / / [id number] Imp Stem Centralizer Depuy 12.0mm 1376-21-000 - [id number] Implanted:Qty: 1 on 09/27/2023 by Ronni Villegas MD at [facility] Total Joint Component/ Insert Left: Hip [employer] [id number] 12/22/2027 [id number] / / [id number] Stem Femoral [place] Std Cemented Sz 5 157110 - [id number] Implanted:Qty: 1 on 09/27/2023 by Ronni Villegas MD at [facility] Total Joint Component/ Insert Left: Hip [employer] [id number] 07/23/2028 1570-03-110 / / [id number] Head Ceramic Delta 10/06 Taper 32 - [id number] Implanted:Qty: 1 on 09/27/2023 by Ronni Villegas MD at [facility] Total Joint Component/ Insert Left: Hip [employer] [id number] 03/23/2027 1365-32-320 / / [id number] Explanted Type Area Trimmer Machine Operator Device Identifier Shelf Expiration Date Model / Serial / Lot Stent Ureteral Polaris Ultra [id number] - [id number] Implanted:Qty: 1 on 01/05/2023 by Pawel Dubon MD at [facility] Explanted:Qty: 1 on 01/27/2023 by Pawel Dubon MD at [facility] Stent Left: Ureter [employer] 11/04/2025 [id number] / / [id number] Procedures Procedure Name Priority Date/Time Associated Diagnosis Comments UA MICROSCOPIC WITH REFLEX TO CULTURE Routine 03/25/2025 2:54 PM CDT Routine general medical examination at a rust Medicare annual wellness visit, subsequent Renal cyst Medication monitoring encounter ALBUMIN RANDOM URINE QUANTITATIVE Routine 03/25/2025 2:54 PM CDT Routine general medical examination at a rust Medicare annual wellness visit, subsequent Renal cyst Medication monitoring encounter UA MACROSCOPIC WITH REFLEX TO MICRO AND CULTURE Routine 03/25/2025 2:54 PM CDT Routine general medical examination at a rust Medicare annual wellness visit, subsequent Renal cyst Medication monitoring encounter TOPIRAMATE LEVEL Routine 03/25/2025 2:44 PM CDT Tremor MAGNESIUM Routine 03/25/2025 2:44 PM CDT Routine general medical examination at a rust Medicare annual wellness visit, subsequent Tremor Medication monitoring encounter VITAMIN D DEFICIENCY SCREENING Routine 03/25/2025 2:44 PM CDT Routine general medical examination at a rust Medicare annual wellness visit, subsequent Vitamin D deficiency Medication monitoring encounter FERRITIN Routine 03/25/2025 2:44 PM CDT Routine general medical examination at a rust Medicare annual wellness visit, subsequent Iron deficiency anemia, unspecified iron deficiency anemia type Medication monitoring encounter IRON AND IRON BINDING CAPACITY Routine 03/25/2025 2:44 PM CDT Routine general medical examination at a rust Medicare annual wellness visit, subsequent Iron deficiency anemia, unspecified iron deficiency anemia type Medication monitoring encounter TSH WITH FREE T4 REFLEX Routine 03/25/2025 2:44 PM CDT Routine general medical examination at a rust Medicare annual wellness visit, subsequent Major depressive disorder, single episode, mild Generalized muscle weakness Medication monitoring encounter CK TOTAL Routine 03/25/2025 2:44 PM CDT Routine general medical examination at a health care facility Medicare annual wellness visit, subsequent Hyperlipidemia LDL goal <70 Medication monitoring encounter CBC WITH PLATELETS Routine 03/25/2025 2: 44 PM CDT Routine general medical examination at a rust Medicare annual wellness visit, subsequent Malignant neoplasm of left female breast, unspecified estrogen receptor status, unspecified site of breast (H) Other cirrhosis of liver (H) Iron deficiency anemia, unspecified iron deficiency anemia type Medication monitoring encounter LIPID REFLEX TO DIRECT LDL PANEL Routine 03/25/2025 2:44 PM CDT Routine general medical examination at a health care facility Medicare annual wellness visit, subsequent Ascending aorta dilatation Atherosclerosis of abdominal aorta Abdominal aortic aneurysm (AAA) without rupture, unspecified part Hyperlipidemia LDL goal <70 Splenic lesion Medication monitoring encounter COMPREHENSIVE METABOLIC PANEL Routine 03/25/2025 2:44 PM CDT Routine general medical examination at a rust Medicare annual wellness visit, subsequent Tremor Malignant neoplasm of left female breast, unspecified estrogen receptor status, unspecified site of breast (H) Hyperlipidemia LDL goal <70 Other cirrhosis of liver (H) Renal cyst Vitamin D deficiency Medication monitoring encounter MA SCREENING DIGITAL RIGHT Routine 11/21/2019 11:20 AM PRINT CONTROLLER Encounter for screening mammogram for malignant neoplasm of breast Encounter for routine adult health examination without abnormal findings Encounter for Medicare annual wellness exam Medication monitoring encounter COLONOSCOPY Routine 05/25/2017 8:57 AM CDT FECAL COLORECTAL CANCER SCREEN FIT Routine 11/17/2015 11:00 AM PRINT CONTROLLER Encounter for routine adult health examination without abnormal findings Medicare annual wellness visit, subsequent Colon polyps Family history of colon cancer Screen for colon cancer from Last 3 Months or Most Recently Relevant to Health Maintenance Results * (ABNORMAL) UA Microscopic with Reflex [...] 3:12 PM CDT Urine Culture not indicated us Blair Gutiérrez MD LAB - URINE ORDERABLES Final Res ult RV LABORATORY [facility] [place] [facility] [address] [place] [address] Lab (no room number, 1st floor of clinic) [place] [id number] * (ABNORMAL) UA Macroscopic with reflex to Microscopic and Culture (03/25/2025 2:54 PM CDT) Color Urine Yellow Colorless, Straw, Light Yellow, Yellow 03/25/2025 3:08 PM CDT [facility] Appearance Urine Clear Clear 03/25/20 3:08 PM CDT [facility] LAB[facility] Glucose Urine Negative Negative mg/dL 03/25/2025 3:08 PM CDT RV LAB[facility]ATORY Bilirubin Urine Negative Negative 3:08 PM CDT RV LAB[facility]ORY Ketones Urine Negative Negative mg/dL 03/25/2025 3:08 PM CDT RV LABORATORY Specific [place] Urine 1.025 1.003 - 1.035 03/25/2025 3:08 [...] LAB - URINE ORDERABLES Final Res ult LABORATORY [facility] [place] [facility] [address] [place] [address] Lab (no room number, 1st floor of clinic) [place] [address] * (ABNORMAL) Albumin Random Urine Quantitative with [...] control, and institution of therapy with an pyrncfszeju-pdsdxdslqt-cmrzxz (TIMOTHY) inhibitor (if the patient can tolerate it). Urine MID-STREAM URINE SPECIMEN / Unknown Non-blood Collection / Unknown 03/25/2025 2:54 PM CDT 03/25/2025 2:54 PM CDT us Blair Gutiérrez MD LAB - URINE ORDERABLES Final Res ult U LABORATORY [facility] [address] [facility], [address] [place] [address] * Topiramate Level (03/25/2025 2:44 PM CDT) Pathologist [facility] Topiramate 8.8 5.0 - 20.0 ug/mL 03/26/2025 9:27 AM CDT [facility] Comment: INTERPRETIVE INFORMATION: Topiramate Therapeutic range: 5.0-20.0 ug/mL Toxic: Not well established Pharmacokinetics varies widely, particularly with co-medications, age, and/or compromised renal function. Adverse effects may include somnolence, fatigue, and dizziness. Performed By: [facility] [address] [place] [address] Crawler Tractor Operator: Nikko Love MD, PhD CLIA Number: [id number] Blood BLOOD SPECIMEN / Unknown Venipuncture / Unknown 03/25/2025 2:44 PM CDT 03/25/2025 2:44 PM CDT us Blair Gutiérrze MD LAB - BLOOD ORDERABLES Final Res ult [facility] [address] [place] [address], [facility] [phone] * (ABNORMAL) Vitamin D Deficiency (03/25/2025 2:44 PM CDT) Vitamin D, Total (25-Hydroxy) 54(H) 20 - 50 ng/mL 03/26/2025 3:12 AM CDT U LABORATORY Comment:indicates supplement ation, with increased risk of hypercalciuria Blood BLOOD SPECIMEN / Unknown Venipuncture / Unknown 03/25/2025 2:44 PM CDT 03/25/2025 2:44 PM CDT Narrative [facility] - 03/26/2025 3:12 AM CDT Season, race, dietary intake, and treatment affect the concentration of 28-mqcknfh-Enydlks D. Values may decrease during winter months and increase during summer months. Vitamin D determination is routinely performed by an immunoassay specific for 25 hydroxyvitamin D3. If an individual is on vitamin D2(ergocalciferol) supplementation, please specify 25 [place] vitamin D2 and D3 level determination by LCMSMS test VITD23. us Blair Gutiérrez MD LAB - BLOOD ORDERABLES Final Res ult U LABORATORY [facility] [address] [facility], [address] * TSH with free T4 reflex (03/25/2025 2:44 PM CDT) TSH 1.65 0.30 - 4.20 uIU/mL 03/26/2025 3:12 AM CDT [facility] Blood BLOOD SPECIMEN / Unknown Venipuncture / Unknown 03/25/2025 2:44 PM CDT 03/25/2025 2:44 PM CDT us Blair Gutiérrez MD LAB - BLOOD ORDERABLES Final Res ult U LABORATORY [facility] [address] [facility], [address] * Magnesium (03/25/2025 2:44 PM CDT) Magnesium 2.1 1.7 - 2.3 mg/dL 03/26/2025 3:16 AM CDT [facility] Blood BLOOD SPECIMEN / Unknown Venipuncture / Unknown 03/25/2025 2:44 PM CDT 03/25/2025 2:44 PM CDT Blair Gutiérrez MD LAB - BLOOD ORDERABLES Final Res ult [facility] LABORATORY [facility] [address] [facility], [address] [place] [address] * Lipid panel reflex to direct LDL Fasting (03/25/2025 2:44 PM CDT) Cholesterol 175 <200 mg/dL 03/26/2025 3:16 AM [...] 219 mg/dL Very High: >= 220 mg/dL Blair Gutiérrez MD LAB - BLOOD ORDERABLES Final Res ult U LABORATORY [facility] [address] [facility], [address] * Iron and iron binding capacity [...] ORDERABLES Final Res ult Performing Organization Address City/[facility]/ZIP Co de Phone Number U LABORATORY [facility] [address] [facility], [address] * Ferritin (03/25/2025 2:44 PM CDT) Pathologist [facility] Ferritin 231 11 - 328 ng/mL 03/26/2025 3:16 AM CDT [facility] Blood BLOOD SPECIMEN / Unknown Venipuncture / Unknown 03/25/2025 2:44 PM CDT 03/25/2025 2:44 PM CDT us Blair Gutiérrez MD LAB - BLOOD ORDERABLES Final Res ult U LABORATORY [facility] [address] [facility], [address] * (ABNORMAL) Comprehensive metabolic panel (03/25/2025 2:44 PM CDT) Pathologist [facility] Sodium 144 135 - 145 mmol/L 03/26/2025 [...] 2:44 PM CDT 03/25/2025 2:44 PM CDT Blair Gutiérrez MD LAB - BLOOD ORDERABLES Final Res ult [facility] LAB[facility]ATORY [facility] [address] [facility], [address] * CK total (03/25/2025 2:44 PM CDT) Pathologist [facility] CK 41 26 - 192 U/L 03/26/2025 3:16 AM CDT [facility] Blood BLOOD SPECIMEN / Unknown Venipuncture / Unknown 03/25/2025 2:44 PM CDT 03/25/2025 2:44 PM CDT Blair Gutiérrez MD LAB - BLOOD ORDERABLES Final Res ult [facility] LAB[facility]AT[facility] [address] [facility], [address] * (ABNORMAL) CBC with platelets (03/25/2025 2:44 PM CDT) Pathologist [facility] WBC Count 3.7(L) 4.0 - 11.0 10e3/uL [...] 2:44 PM CDT 03/25/2025 2:44 PM CDT Blair Gutiérrez MD LAB - BLOOD ORDERABLES Final Res ult LABORATORY [facility] [place] [facility] [address] [place] [address] Lab (no room number, 1st floor of clinic) [place] [address] * MA Screening Digital Right (11/21/2019 11:20 AM PRINT CONTROLLER) Anatomical Region Laterality Modality Breast Right Mammography Impressions 11/22/2019 10:27 AM PRINT CONTROLLER IMPRESSION: BI-RADS CATEGORY: 1 - Negative RECOMMENDED FOLLOW-UP: Annual Mammography. Exam results letter mailed to patient. DESTINY CRANDALL MD Narrative 11/22/2019 10:27 AM PRINT CONTROLLER SCREENING MAMMOGRAM, RIGHT, DIGITAL w/CAD - 11/21/2019 11:20 AM BREAST SYMPTOMS: No current breast complaints. COMPARISON: 08/17/2018, 03/08/2017, 03/01/2016, 04/15/2014. BREAST DENSITY: Scattered fibroglandular densities. COMMENTS: No findings of suspicion for malignancy. Procedure Note Destiny Crandall MD - 11/22/2019 SCREENING MAMMOGRAM, RIGHT, DIGITAL w/CAD - 11/21/2019 11:20 AM BREAST SYMPTOMS: No current breast complaints. COMPARISON: 08/17/2018, 03/08/2017, 03/01/2016, 04/15/2014. BREAST DENSITY: Scattered fibroglandular densities. COMMENTS: No findings of suspicion for malignancy. IMPRESSION: BI-RADS CATEGORY: 1 - Negative RECOMMENDED FOLLOW-UP: Annual Mammography. Exam results letter mailed to patient. DESTINY CRANDALL MD Blair Gutiérrez MD IMG MAMMOGRAPHY ORDERABLES Final Result * COLONOSCOPY (05/25/2017 8:57 AM CDT) COLONOSCOPY [facility] Patient Name: Dahlia Clemens Procedure Date: 05/25/2017 8:57 AM Date of : 1940 Admit Type: Outpatient Age: 76 Gender: Female Attending MD: Arron Berrios MD Total Sedation Time: 16 minutes Instrument Name: 140 Procedure: Colonoscopy Indications: Follow-up for history of adenomatous polyps in the colon, Family history of colon cancer in multiple first-degree relatives Providers: Arron Berrios MD (Doctor) Referring MD: Blair Gutiérrez MD (Referring MD) Medicines: Midazolam 0.5 mg IV, Fentanyl 100 micrograms IV Complications: No immediate complications. Procedure: Pre-Anesthesia Assessment: - Prior to the procedure, a History and Physical was performed, and patient medications and allergies were reviewed. The patient is competent. The risks and benefits of the procedure and the sedation options and risks were discussed with the patient. All questions were answered and informed consent was obtained. Patient identification and proposed procedure were verified by the physician in the endoscopy suite. Mental Status Examination: alert and oriented. Airway Examination: normal oropharyngeal airway and neck mobility. Respiratory Examination: clear to auscultation. CV Examination: normal. Prophylactic Antibiotics: The patient does not require prophylactic antibiotics. Prior Anticoagulants: The patient has taken no previous anticoagulant or antiplatelet agents. ASA Grade Assessment: II - A patient with mild systemic disease. After reviewing the risks and benefits, the patient was deemed in satisfactory condition to undergo the procedure. The anesthesia plan was to use moderate sedation / analgesia (conscious sedation). Immediately prior to administration of medications, the patient was re-assessed for adequacy to receive sedatives. The heart rate, respiratory rate, oxygen saturations, blood pressure, adequacy of pulmonary ventilation, and response to care were monitored throughout the procedure. The physical status of the patient was re-assessed after the procedure. After obtaining informed consent, the colonoscope was passed under direct vision. Throughout the procedure, the patient's blood pressure, pulse, and oxygen saturations were monitored continuously. The Olympus Peds Colonoscope Model #PCF-H190L, [place]#140, SN#[id number] was introduced through the anus and advanced to the cecum, identified by appendiceal orifice and ileocecal valve. The colonoscopy was performed without difficulty. The patient tolerated the procedure well. The quality of the bowel preparation was excellent. Findings: Three sessile polyps were found in the transverse colon and ascending colon. The polyps were 3 to 4 mm in size. These polyps were removed with a cold snare. The ascending polyp was not retrieved. A single diverticulum was found in the transverse colon. Impression: - Three 3 to 4 mm polyps in the transverse colon and in the ascending colon, removed with a cold snare. Resected and retrieved. - Diverticulosis in the transverse colon. Recommendation: High fiber diet. Repeat in three years if in good health. _ Arron Berrios MD 05/25/2017 10:15:35 AM I was physically present for the entire viewing portion of the exam. Arron Berrios MD Number of Addenda: 0 Note Initiated On: 05/25/2017 8:57 AM Procedure Date: 05/25/2017 8:57:11 AM Scope Withdrawal Time: 0 hours 11 minutes 54 seconds Total Procedure Duration: 0 hours 15 minutes 43 seconds Estimated Blood Loss: Scope In: 9:54:07 AM Scope Out: 10:09:50 AM RADIOLOGY RESULTS 05/25/2017 8:57 AM CDT us Blair Gutiérrez MD PROCEDURES Final Result RADIOLOGY RESULTS * Fecal colorectal cancer screen (FIT) (11/17/2015 11:00 AM PRINT CONTROLLER) Occult Blood Scn FIT Negative NEG [facility] Stool specimen (specimen) 11/17/2015 11:00 AM PRINT CONTROLLER 11/17/2015 11:05 AM PRINT CONTROLLER us Blair Gutiérrez MD LAB - STOOLS ORDERABLES Final Re sult Performing Organization Address City/[facility]/ZIP Co de Phone Number [facility] [address] [place] [address] from Last 3 Months or Most Recently Relevant to Health Maintenance Insurance MEDICARE [facility] MEDICARE [facility] MEDICARE [facility] * Guarantor: Vasu Clemensshaka Castano Account Type Relation to Patient Date of Phone Billing Address Medication Therapy Self 1940 [address] [place] [address] [employer] Advance Directives For more information, please contact: [phone] Documents on File Type Date Recorded 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 Advance Directives and Living Will 10/19/2023 POLST 10/03/2023 Advance Directives and Living Will 08/06/2011 6:27 AM superseded by 10/03/2023 order; POLST 08-06-2011 * No CPR- Do NOT Intubate (Latest Code Status on File) Date Activated Date Inactivated Comments 09/27/2023 8:59 PM 10/01/2023 4:50 PM NO basic or advanced life-sustaining interventions are performed Question Answer Comments Code status determined by: Discussion with patie nt/ legal decision maker * No CPR- Do NOT Intubate Date Activated Date Inactivated Comments 08/19/2023 2:16 AM 08/22/2023 1:44 PM NO basic o r advanced life-sustaining interventions are performed Question Answer Comments Code status determined by: Discussion with patie nt/ legal decision maker * Full Code Date Activated Date Inactivated Comments 08/19/2023 12:23 AM 08/19/2023 2:16 AM All basic and advanced life-sustaining interventions are performed as appropriate Question Answer Comments Code status determined by: Discussion with patie nt/ legal decision maker * Full Code Date Activated Date Inactivated Comments 01/27/2023 5:34 PM 01/28/2023 1:25 PM All basic and advanced life-sustaining interventions are performed as appropriate Question Answer Comments Code status determined by: Discussion with patie nt/ legal decision maker * Full Code Date Activated Date Inactivated Comments 01/06/2023 1:26 AM 01/08/2023 4:24 PM All basic an d advanced life-sustaining interventions are performed as appropriate Question Answer Comments Code status determined by: Discussion with patie nt/ legal decision maker Care Teams Union Contract Representative Relationship Specialty Start Date End Date Blair Gutiérrez MD [address] [place] [address] [id number] PCP - General Family Medicine 09/08/23 Idalia Lara, PT [address] [facility] [address] [place], [place] [phone] Specialty Senior Linux Systems Administrator Physical Medicine and Rehabilitation 09/04/19 Taylor Mccoy MD [address] [place] [address] [id number] Physical Medicine and Rehabilitation 09/04/19 Eveline Streeter, KRIS RETIRED [place], [place] [id number] Specialty Senior Linux Systems Administrator Physical Medicine and Rehabilitation 09/04/19 Blair Gutiérrez MD [address] [place] [address] [id number] Assigned PCP 09/10/23 La Flores MD [address] [place] [address] Assigned Heart and Vascular Provider 09/17/23 Deepa Dobbins MD [address] [place] [id number] Cardiovascular Disease 10/12/23 No Ref-Primary, Physician 11/10/23
--- OUTSIDE RECORDS SUMMARY | 2025-03-29 20:20 | XMS_ITS | Encounter Summary ---
Author Organization [facility] Address [address] [place] [id number] Care Team Providers Care Deployment Manager Name Role Phone Idalia Lara PT Unavailable [phone] Taylor Mccoy MD Unavailable Eveline Streeter RN Unavailable + [phone] Blair Gutiérrez MD Primary Care Provider [phone] Blair Gutiérrez MD Unavailable La Flores MD Unavailable + [phone] Deepa Dobbins MD Unavailable [phone] No Ref-Primary, Physician Unavailable [phone] Encounter Details Date Type Department Care Team (Latest Contact Info) Description 03/25/2025 Travel Social History Tobacco Use Types Packs/Day Years [...] re latives? Once a week 03/25/2025 Attends [employer] Services Not on file 03/25 Active Member of Clubs or Organizations Not on f ile 03/25/2025 Attends Club or Organization Meetings Not on tim e 03/25/2025 Marital Status Not on file 03/25/2025 PHQ-2 Answer Date Recorded PHQ-2 Score 0 03/25/2025 [facility] Occupational Stress Questionnaire Answer [...] Answer Date Recorded Do you have housing? 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 Gender Identity Not on file Sexual Orientation Not on file Occupation Industry Job Start Date Job End Date Not on file Not on file Not on file Not on file documented as of this encounter Plan of Treatment Not on file documented as of this encounter Visit Diagnoses Not on filedocumented in this encounter Additional Health Concerns Assessment Noted Time PHQ-9 Depression Total Score: 0 03/25/20 25 1:17 PM CDT documented as of this encounter Care Teams Deployment Manager Relationship Specialty Start Date End Date Blair Gutiérrez MD [address] [place] [address] [id number] PCP - General Family Medicine 09/08/23 Idalia Lara, PT [address] [place] [address] [address] [place], [place] [phone] Specialty Television Repair Teacher Physical Medicine and Rehabilitation 09/04/19 Taylor Mccoy MD [address] [place] [address] [phone] Physical Medicine and Rehabilitation 09/04/19 Eveline Streeter RN RETIRED [place], [place] [phone] Specialty Television Repair Teacher Physical Medicine and Rehabilitation 09/04/19 Blair Gutiérrez MD [address] [place] [address] [id number] Assigned PCP 09/10/23 La Flores MD [address] [place] [id number] Assigned Heart and Vascular Provider 09/17/23 Deepa Dobbins MD [address] [place] [address] Cardiovascular Disease 10/12/23 No Ref-Primary, Physician 11/10/23 documented as of this encounter
[2025-03-29 20:53] LABS: INR 0.95 (0.91-1.10); Prothrombin Time 13.5 Seconds
[2025-03-29] MEDS: PANTOPRAZOLE SODIUM 40 MG INJ 80 MG IVP (21:00)
[2025-03-29] MEDS: cefTRIAXone 1 GM in 0.9 % SODIUM CHLORIDE Mini-bag 100 ML IVPB (21:01)
[2025-03-29] MEDS: POTASSIUM CHLORIDE 10 MEQ/100 ML PIGGYBACK 100 MEQ IVPB (21:01)
== END 2025-03-29 22:29 | disposition short-term general hospital (02) ==
PROVIDERS: Emergency Provider Family Medicine
DX: K92.2 Gastrointestinal hemorrhage, unspecified (principal); K92.0 Hematemesis; R55 Syncope and collapse; E87.6 Hypokalemia; R51.9 Headache, unspecified
CPT/HCPCS: 36415; 70450; 70496; 70498; 80048; 80076; 81001; 82077; 82565; 82962; 83605; 83986; 84484; 85025; 85610; 86140; 87086; 93005; 94761; 99285; 99291; G0426; J0696; J2354; J2405; J2470; J3480; J7030; Q9967

== ENCOUNTER 2025-03-29 22:08 | Outpatient (CLI) | payer MEDICARE, OTHER, SELFPAY | END 2025-03-29 22:09 | disposition home or self-care (01) | LOC: AMB 04-01 12:11 | PROVIDERS: Visit Provider Family Medicine | DX: R55 Syncope and collapse (principal); K92.2 Gastrointestinal hemorrhage, unspecified; K92.0 Hematemesis; E87.6 Hypokalemia | CPT/HCPCS: A0425; A0427 ==